=== PATIENT | male | born 1940 | race African-American/Black ===

== ENCOUNTER 2017-07-10 09:42 | Emergency (ER) | payer MEDICARE ==
--- NOTE | 2017-07-10 11:19 | RAD ---
UPRIGHT PORTABLE CHEST 1 VIEW: HISTORY: A 77-year-old female with mid sternal chest pain. History of cardiac problems. COMPARISON: 02/06/17. FINDINGS: Monitor leads overlie the chest. Loop recorder overlies the left chest. Heart size is normal. The lungs are clear. IMPRESSION: No acute intrathoracic disease. POS: [facility]
== END 2017-07-10 10:24 | disposition home or self-care (01) ==
LOC: ERS 09:42
DX: L03.313 Cellulitis of chest wall (principal); R07.89 Other chest pain; I10 Essential (primary) hypertension; I25.10 Atherosclerotic heart disease of native coronary artery without angina pectoris; F17.210 Nicotine dependence, cigarettes, uncomplicated; Z87.442 Personal history of urinary calculi
CPT/HCPCS: 71010; 93005

== ENCOUNTER 2018-04-21 06:06 | Inpatient (IN) | payer MEDICARE ==
[2018-04-21 07:06] LABS: #Basophils 0.1 thou/uL (0.0-0.2); #Eosinphils 0.1 thou/uL (0.0-0.7); #Lymphocytes 1.9 thou/uL (1.20-3.40); #Monocytes 0.6 thou/uL (0.11-0.59); #Neutrophils 6.7 thou/uL (1.40-6.50); %Basophils 0.6 % (0.0-1.0); %Eosinophils 0.9 % (0.0-10.0); %Lymphocytes 20.6 % (21.0-51.0); %Monocytes 6.8 % (0.0-10.0); %Neutrophils 71.1 % (42.0-75.0); Hemoglobin 5.8 g/dL (14.0-18.0); Mean Corpuscular HGB CONC 34.4 g/dL (32.0-36.0); Mean Corpuscular Hemoglobin 29.4 pg (27.0-31.0); Mean Corpuscular Volume 85.5 fL (78.0-98.0); Mean Platelet Volume 6.8 fL (7.4-10.4); Platelet Count 304 thou/uL (130-400); Red Blood Cell (RBC) Count 1.96 mill/uL (4.70-6.10); White Blood Cell (WBC) Count 9.4 thou/uL (4.8-10.8)
[2018-04-21 07:22] LABS: ALT (SGPT) 13 U/L (8-55); AST (SGOT) 23 U/L (5-34); Albumin 3.5 g/dL (3.4-4.8); Alkaline Phosphatase 66 U/L (40-150); Anion Gap 17 mmol/L (10-20); BUN (Urea Nitrogen) 10 mg/dL (8.4-25.7); Bilirubin, Total Less than 0.2 mg/dL (0.2-1.2); Calc. Creatinine Clearance 0 mL/min (70-130); Calcium 8.4 mg/dL (7.8-10.44); Carbon Dioxide 16 mmol/L (23-31); Chloride 110 mmol/L (98-107); Estimated GFR-MDRD 87; Globulin 2.5 g/dL (2.4-3.5); Glucose 111 mg/dL (83-110); Potassium 3.5 mmol/L (3.5-5.1); Sodium 139 mmol/L (136-145)
[2018-04-21 07:42] LABS: CKMB 5.3 ng/mL (0-6.6); Troponin I Less than 0.010 ng/mL (< 0.028)
--- NOTE | 2018-04-21 09:20 | RAD ---
PORTABLE CHEST 1 VIEW: Date: 04/21/18 Time: 0803 hours HISTORY: Nausea and vomiting. FINDINGS: Comparison made with exam of 07/10/17. The heart size is normal. The aorta is tortuous. Loop recorder in the left chest is again seen. The l ungs are well expanded without focal areas of consolidation, pneumothorax, or pleural effusions. IMPRESSION: No acute process. POS: [facility]
[2018-04-21] MEDS ORDERED: Piperacillin/Tazobactam 4.5 GM VIAL ONE (09:40)
[2018-04-21 10:04] LABS: Bilirubin Negative (Negative); Blood, Urine Negative (Negative); Clarity CLEAR (Clear); Glucose, Urine (Dipstick) Negative (Negative); Leukocyte Negative (Negative); Nitrite Negative (Negative); Protein, Urine (Dipstick) Negative (Neg-Trace); Specific Gravity, Urine 1.007 (1.002-1.036); Urobilinogen 0.2 mg/dL (0.2-1.0); pH, Urine 6.5 (5.0-9.0)
[2018-04-21] MEDS ORDERED: Ondansetron HCl/PF 4 MG/2 ML Vial IVP PRN (11:22)
[2018-04-21] MEDS ORDERED: Zolpidem Tartrate 5 MG TAB PO PRN (11:22)
[2018-04-21] MEDS ORDERED: Morphine 4 MG/ML VIAL ONE ×2 (11:33→15:14)
--- NOTE | 2018-04-21 11:34 | HP ---
PRIMARY CARE PROVIDER: [facility], Dr. Sravanthi Aleman. Referred to [facility] Service for r ectal bleeding, anemia, and scrotal abscess. HISTORY OF PRESENT ILLNESS: The patient has had pain in his groin for 2 weeks. It got severe this m orning, he was nauseated, felt weak. He has had rectal bleeding x2 weeks, sometimes dark blood, some times bright red blood. He is being treated for hemorrhoidal bleeding. He has had no fever, sweats or chills. PAST MEDICAL HISTORY: Hypertension, cardiac catheterization in 2014 that was negative. He has a [employer] p recorder put in at that time. He has a history of depression. He does not know his medicines. He states he takes a depression medicine and a blood pressure medicine. ALLERGIES: No known drug allergies. PAST SURGICAL HISTORY: L-spine surgery years ago. FAMILY HISTORY: Mother at 89 of a heart attack. Father in his 100s. SOCIAL HISTORY: . next of kin. FULL CODE status. Tobacco; half pack a day. Alcohol; he has a shot of aron occasionally. REVIEW OF SYSTEMS: GENERAL: Dizzy this morning. No fainting. No headache. EYES: No double visio n, blurred vision, flashing lights. EAR, NOSE, AND THROAT: No ear pain or drainage. No nasal bleed ing. No trouble swallowing. CARDIAC: He says he is a little short of breath while walking at times . No cough, no wheezing, no asthma. GASTROINTESTINAL: Negative other than mentioned in present ill ness, no vomiting, no abdominal pain. GENITOURINARY: No hematuria or dysuria. MUSCULOSKELETAL: He states his legs ache at times in his lower legs, does not describe neuropathic pain. Does not descr piedad joint pains or muscle pains, particularly. NEUROLOGIC: No strokes, seizures or focal weakness. PSYCHIATRIC: Depression, stable on current medicines. SKIN: No bruising, bleeding or rash. HEME/ LYMPH: No tender or swollen lymph nodes in axilla, inguinal or cervical area. PHYSICAL EXAMINATION: GENERAL: Alert, oriented, and cooperative gentleman in no distress. VITAL SIGNS: Blood pressure 132/67, pulse 68, respirations 15, temperature 97.7, O2 sat on room air. He describes the pain as 9. HEENT: Examination of his head, eyes, ears, nose, and throat reveal pupils equal, round, and reactiv e to light. Extraocular movements are intact. Sclerae are white. Mucous membranes are decidedly pa le. Tympanic membrane is clear. Nose is clear. Oral mucous membranes are wet. CHEST: Clear to auscultation and percussion. NECK: No jugular venous distention, adenopathy, or thyromegaly. HEART: Regular rate and rhythm. First and second heart sounds clear. No murmurs or gallops. ABDOMEN: Soft, bowel sounds are normal. There is no hepatosplenomegaly, no mass, no rebound. EXTREMITIES: Reveal no cyanosis, clubbing or edema. PULSES: Carotid, radial, femoral, and dorsalis pedis pulses intact. SKIN: Warm and dry without bruises or rash. It is pertinent that in his left chest, there is a subc utaneous 3-4 x 25 mm or so mm metallic device. HEME/LYMPH: No tender or swollen lymph nodes in axilla, inguinal or cervical area. NEUROLOGICAL: Cranial nerves II-XII are intact. Deep tendon reflexes symmetric. Moves all extremit ies. SCROTUM: At the border of the scrotum and the right inguinal area, there is approximately a 1 cm abs cess that is trying to point, it is exquisitely tender, inflamed. LABORATORY DATA AND IMAGING DATA: Lactic acid was elevated at 4.2, CO2 16, chloride 110, sodium 139, potassium 3.5, BUN 10, creatinine 1.01. Liver function test is normal. Urine is clear. CBC showed hemoglobin of 5.8 with normocytic normochromic indices. White cell count 9.4, platelet count 304. Chest x-ray; loop recorder in the left chest. Lung fuentes clear. Heart size normal. No EKG present ed. One will be obtained. PLAN: 1. Abscess, will have general surgeon to see. 2. Severe normocytic normochromic anemia, transfuse. 3. Rectal bleeding. The patient will need a colonoscopy. GI exam. 4. Hypertension. 5. Depression. 6. Lactic acidosis will need to be repeated before discharge.
[2018-04-21 11:36] LABS: Lactic Acid 1.5 mmol/L (0.5-2.2)
[2018-04-21] MEDS ORDERED: CEFAZOLIN 1 GM VIAL ONE (14:11)
[2018-04-21 14:15] LABS: #Basophils 0.1 thou/uL (0.0-0.2); #Eosinphils 0.1 thou/uL (0.0-0.7); #Lymphocytes 2.7 thou/uL (1.20-3.40); #Monocytes 0.8 thou/uL (0.11-0.59); #Neutrophils 7.3 thou/uL (1.40-6.50); %Basophils 0.8 % (0.0-1.0); %Eosinophils 0.6 % (0.0-10.0); %Lymphocytes 24.4 % (21.0-51.0); %Monocytes 7.7 % (0.0-10.0); %Neutrophils 66.5 % (42.0-75.0); Hemoglobin 10.8 g/dL (14.0-18.0); Mean Corpuscular HGB CONC 34.7 g/dL (32.0-36.0); Mean Corpuscular Volume 86.4 fL (78.0-98.0); Mean Platelet Volume 6.9 fL (7.4-10.4); Platelet Count 288 thou/uL (130-400); Red Blood Cell (RBC) Count 3.59 mill/uL (4.70-6.10)
[2018-04-21] MEDS ORDERED: Lidocaine 1% w/Epinephrine 1:100K 20 ML VIAL ONE (15:12)
--- NOTE | 2018-04-21 17:30 | PDOC.EVN ---
Event Note - Event Note Event Note: now in A fib with rvr. cardizem 10mg bolus and infusion at 5mg/hr started. Dr Wiggins consulted
[2018-04-21 17:47] VITALS: BMI 19.3
[2018-04-21] MEDS: CEFAZOLIN 1 GM in Sodium Chloride 0.9% 100 ML IVPB SCH ×2 (17:53→21:03)
[2018-04-21] MEDS: Sodium Chloride 0.9% 1,000 ML IV SCH ×2 (18:05→21:03)
[2018-04-21] MEDS: HYDROcodone/Acetaminophen 7.5/325 mg Tablet PO PRN ×2 (18:13→22:31)
[2018-04-21] MEDS ORDERED: GoLYTELY 4,000 ml Bottle PO SCH (19:45)
--- NOTE | 2018-04-21 19:49 | OP ---
DATE OF PROCEDURE: 04/21/2018 PREOPERATIVE DIAGNOSIS: Right scrotal abscess. POSTOPERATIVE DIAGNOSIS: Right scrotal abscess. PROCEDURES PERFORMED: Incision and drainage of right scrotal abscess. INDICATIONS FOR PROCEDURE: This is a 78-year-old man who presented to the emergency department compl aining of progressively worse right groin pain of 2 weeks' duration. The patient was also complainin g of some nausea and weakness for about the same period of time. He endorses some melena, but no vipin ght red blood per rectum. Clinical examination was consistent with a 2 x 3 cm right scrotal floccule nt tender mass. There is some erythema surrounding this flocculence. There is no active drainage pr esent. The patient had no external hemorrhoids visible on examination. He had received 2 units of p acked red blood cells to treat anemia with a hemoglobin of 5. I discussed with the patient and he co nsented for incision and drainage of the right scrotal abscess. DESCRIPTION OF PROCEDURE: Informed consent obtained from the patient who was placed in the supine po sition. The right groin and scrotum were sterilely prepped and draped in the usual fashion. The ski n over the flocculent mass was anesthetized with 1% lidocaine with epinephrine. A crucifix incision was made over the dome of this flocculence using an 11 scalpel. Large amount of purulent pus was miguel cuated. Cultures were taken. The abscess cavity was irrigated with saline and packed with half-inch iodoform gauze. Dry gauze was placed over this and mesh panties was then applied. The patient tole rated the procedure without any apparent complications. The gauze strip will be removed tomorrow and the patient is to continue with sitz baths twice daily and after each bowel movement.
[2018-04-21 22:30] LABS: Hemoglobin 10.2 g/dL (14.0-18.0); Platelet Count 295 thou/uL (130-400)
--- NOTE | 2018-04-22 01:23 | CON ---
DATE OF CONSULTATION: 04/21/2018 REASON FOR CONSULTATION: Severe anemia and GI bleeding. HISTORY OF PRESENT ILLNESS: Mr. Pendleton is a 78-year-old gentleman, who came to the emergency room to day secondary to groin pain. He was found to have a scrotal abscess. Apparently, this pain started as a bump on his right testicle and became worsening overnight. he was found to be severely an emic. His hemoglobin was 5.8. On 02/06/2017 a year ago had been 14. His MCV was 85, his platelets were 304, and his white count was 9.4. He has been transfused 2 units of blood today and his post-tr ansfusion hemoglobin was 10.8. In talking with the patient, he notes that for several years now, he has had intermittent rectal blee ding. This has been bright red and he attributes to hemorrhoids, because sometimes it would actually hurt. He does not note any melena, but apparently sometimes in the past couple of weeks, he had had some darker blood. He denies any abdominal pain, change in his bowels otherwise. He has had a lot of reflux and gas and he takes ranitidine for that at times. Apparently, this morning, he did feel w eak and was nauseated, but he did not have any emesis, coffee-ground emesis, or overt passing of larg e amounts of blood. PAST MEDICAL HISTORY: Hypertension, cardiac catheterization in 2014. He has had a loop recorder in. He has a history of depression, hypertension. REVIEW OF SYSTEMS: He denies any shortness of breath unless he is smoking a little bit. He denies a ny dysphagia or odynophagia. He states he lost weight in early and that was attributed to some depression, but is doing better now. ALLERGIES: None known. PAST SURGICAL HISTORY: Lumbar spine surgery years ago. He has an event recorder in his chest. FAMILY HISTORY: Mother at 89 of a heart attack. Father in his 100s. SOCIAL HISTORY: He drinks a little alcohol when some of his friends come by. He smokes about half p ack per day. He does not use drugs. His is at the bedside. REVIEW OF SYSTEMS: Everything else is as per HPI. I have reviewed that and agree with Dr. Lanier' re corded review of systems. HOME MEDICATIONS: Nifedipine, aspirin, Tylenol with Codeine at times, and Zantac. MEDICATIONS HERE: Acetaminophen, cefazolin, hydrocodone p.r.n., morphine, p.r.n., Zofran p.r.n., nor mal saline 100 an hour, Ambien. PHYSICAL EXAMINATION: GENERAL: The patient is resting comfortably in bed. He is pretty thin, especially with lot of tempo ral wasting is noticeable on exam. He is alert, bright, and pleasant. VITAL SIGNS: Temperature is 98.2, pulse 69, blood pressure 164/75. HEENT: Oropharynx without lesions. NECK: Supple without any lymphadenopathy. LUNGS: Clear. HEART: Regular rate and rhythm without clicks or murmurs. In chest wall there was something implant ed just below the skin. This is his event recorder. He does not have any leads coming off it. The patient states that was a stent, but he has not had a stent placed. ABDOMEN: Soft and nontender without rebound or guarding. LABORATORY DATA: In addition to the CBC on admission noted on the HPI, INR is 1.2. Liver function t ests are normal. Lactic acid 1.5, it was 4.2 at 6 this morning. His sodium was 139, potassium 3.5, BUN and creatinine were 10 and 1.0. Lipase was less than 4. ASSESSMENT: The patient was admitted for scrotal abscess, which has been addressed. He is on antibi otics now. He was found to be severely anemic. It is unclear if the hemoglobin of 5 is really accur ate, but it must be a little bit low, because his hemoglobin after a unit of blood is still just 10. He does have a history of bleeding. He does have some temporal wasting and history of quite a bit o f reflux and indigestion. RECOMMENDATIONS: 1. Start a PPI. 2. EGD and colonoscopy tomorrow. Risks, benefits, possible complications of the procedure were disc ussed with the patient, as well as alternatives. He understands and he wished to proceed.
[2018-04-22] MEDS: CEFAZOLIN 1 GM in Sodium Chloride 0.9% 100 ML IVPB SCH ×3 (05:53→21:29)
[2018-04-22 07:41] LABS: Hemoglobin 9.6 g/dL (14.0-18.0); Platelet Count 276 thou/uL (130-400)
[2018-04-22] MEDS ORDERED: Prevnar 13-Val Conj/PF 0.5 ML SYRINGE IM ONE (09:00)
[2018-04-22] MEDS: Sodium Chloride 0.9% 1,000 ML IV SCH ×2 (09:01→22:26)
[2018-04-22] MEDS: Pantoprazole 40 MG VIAL IVP SCH (09:14)
[2018-04-22] MEDS ORDERED: ePHEDrine/0.9% NaCl/PF SYRINGE 50 mg/10 ml ONE (13:23)
[2018-04-22] MEDS ORDERED: PHENYLEPHRINE-NS 100 MCG/ML 10 ML SYRINGE ONE ×2 (13:24→14:44)
[2018-04-22] MEDS ORDERED: PROPOFOL 200 MG/20 ML VIAL ONE (14:44)
[2018-04-22] MEDS ORDERED: Cepastat Lozenges 1 LOZ PO PRN (18:55)
[2018-04-22] MEDS: Acetaminophen 325 MG TAB PO PRN (21:32)
--- NOTE | 2018-04-23 01:07 | OP ---
DATE OF PROCEDURE: 04/22/2018 PREPROCEDURE DIAGNOSIS: Severe anemia. POSTPROCEDURE DIAGNOSES: 1. Gastric ulcer antrum white based, no active bleeding, biopsied. 2. Scalloping duodenal fold biopsy, rule out . 3. Colonoscopy, no overt lesions were seen. The prep was poor, polyps may have been missed. ANESTHESIA: TIVA. PROCEDURE IN DETAIL: After the patient was informed of the risks, benefits, possible complications o f endoscopy including perforation, bleeding, reaction to medication and aspiration, informed consent was obtained. The patient was brought to the endoscopy suite where he was sedated in a gradual fashi on. Once he was comfortable, a bite block was placed in the incisural orifice. The endoscope was ad vanced through the esophagus, stomach and second and third portion of duodenum and slowly removed. T he esophagus was normal except for hiatal hernia, which was small. The stomach was notable for gastr ic antral ulcer, which was biopsied. There was no active bleeding noted. Photodocumentation was obt ained. The duodenal bulb was normal in the second and third portion of the duodenum and scalloping o f the folds and biopsies taken to rule out celiac disease. The scope was brought back to the stomach , and retroflexed views were performed, which were normal. The patient was turned in the room and rectal exam was performed. There is sclerosis anal canal, thr ough the colon to the cecum. The prep was poor. The colon was tortuous. We irrigated about 2 liter s of saline to clear the prep as best we could. There were no bleeding sites identified. Small poly ps may have been missed secondary to the poor prep. The cecum was visualized and photographed. ____ _ rectum was normal. The scope was removed. The patient tolerated the procedure without complicatio ns. RECOMMENDATIONS: 1. Await histopathology. 2. Avoid NSAIDs. 3. Avoid alcohol. 4. PPI therapy. We will follow from a distance.
[2018-04-23] MEDS: Sodium Chloride 0.9% 1,000 ML IV SCH ×2 (02:10→11:27)
[2018-04-23] MEDS: CEFAZOLIN 1 GM in Sodium Chloride 0.9% 100 ML IVPB SCH ×2 (06:52→11:28)
[2018-04-23] MEDS: Acetaminophen 325 MG TAB PO PRN (07:52)
[2018-04-23] MEDS: Pantoprazole 40 MG VIAL IVP SCH (11:27)
[2018-04-23] MEDS ORDERED: traMADol HCl 50 MG TAB PO PRN (11:54)
--- NOTE | 2018-04-23 13:09 | PDOC.PN ---
- Subjective Encounter Start Date: 04/23/18 Encounter Start Time: 11:00 Subjective: c/o pain in his scrotal abscess incision site -: no jose luis bleeding per rectum -: is ambulating in room - Objective Resuscitation Status: Resuscitation Status FULL:Full Resuscitation MAR Reviewed: Yes Vital Signs & Weight: Vital Signs (12 hours) Temp Pulse Resp BP Pulse Ox 04/23/18 12:05 98.6 F 71 16 114/65 95 04/23/18 07:58 98.2 F 69 14 04/23/18 07:30 98.2 F 69 14 100/62 92 L 04/23/18 03:45 98.5 F 68 16 95/56 L 95 Weight Weight 135 lb I&O: 04/22/18 04/23/18 04/24/18 06:59 06:59 06:59 Intake Total 2125 Output Total 500 Balance 1625 Result Diagrams: 04/22/18 06:53 04/21/18 06:53 Phys Exam - Physical Examination HEENT: PERRLA, moist MMs Neck: no JVD, supple Respiratory: no wheezing, no rales Cardiovascular: RRR, no significant murmur Gastrointestinal: soft, non-tender, positive bowel sounds scrotal abscess I&D site is clean Musculoskeletal: no edema, pulses present Neurological: non-focal, moves all 4 limbs Psychiatric: normal affect, A&O x 3 Dx/Plan (1) Scrotal abscess Code(s): N49.2 - INFLAMMATORY DISORDERS OF SCROTUM Status: Acute Comment: s/ p I&D (2) GI bleed Code(s): K92.2 - GASTROINTESTINAL HEMORRHAGE, UNSPECIFIED Status: Resolved Qualifiers: GI bleed type/associated pathology: gastric ulcer Qualified Code(s): K25.4 - Chronic or unspecified gastric ulcer with hemorrhage (3) PUD (peptic ulcer disease) Code(s): K27.9 - PEPTIC ULC, SITE UNSP, UNSP AC OR CHR, W/O HEMOR OR PERF Status: Acute (4) Acute blood loss anemia Code(s): D62 - ACUTE POSTHEMORRHAGIC ANEMIA Status: Acute (5) Tobacco abuse Code(s): Z72.0 - TOBACCO USE Status: Chronic - Plan h/h is stable now -: augmentin, ultram, norco prn -: dc plan per gen surg advice -: protonix bid -: to amb as tolerated * . Review of Systems - Medications/Allergies Allergies/Adverse Reactions: Allergies Allergy/AdvReac Type Severity Reaction Status Date / Time No Known Allergies Allergy Verified 04/23/15 17:37 Medications: Current Medications Acetaminophen (Tylenol) 650 mg PO Q4H PRN PRN Reason: Headache/Feve Last Admin: 04/23/18 07:52 Dose: 650 mg Amoxicillin/Clavulanate Potassium (Augmentin) 875 mg PO Q12HR BENNIE Cephalexin (Keflex) 500 mg PO TID [facility] Stop: 04/28/18 15:01 Ondansetron HCl (Zofran) 4 mg IVP Q6H PRN PRN Reason: Nausea/Vomiting Last Admin: 04/22/18 01:58 Dose: 4 mg Pantoprazole Sodium (Protonix) 40 mg PO DAILY [facility] Sodium Chloride (Flush - Normal Saline) 10 ml IVF Q12HR [facility] Last Admin: 04/23/18 11:27 Dose: Not Given Sodium Chloride (Flush - Normal Saline) 10 ml IVF PRN PRN PRN Reason: Saline Flush Throat Lozenges (Cepastat Lozenges) 1 genaro PO Q4H PRN PRN Reason: Cough Tramadol HCl (Ultram) 50 mg PO Q6H PRN PRN Reason: Pain Zolpidem Tartrate (Ambien) 5 mg PO HSPRN PRN PRN Reason: Insomnia
[2018-04-23] MEDS ORDERED: Cephalexin 250 MG CAP PO SCH (15:00)
[2018-04-23 15:45] VITALS: BP 122/73; TEMP 98.3
--- NOTE | 2018-04-23 16:39 | PRG ---
DATE OF SERVICE: 04/23/2018 SUBJECTIVE: Mr. Pendleton states he wants to go home. He has no belly pain. His arm hurts a little bi t for he had his IVs in. PHYSICAL EXAMINATION: VITAL SIGNS: Temperature is 98, pulse 71, respirations 16, blood pressure 114/65. LUNGS: Clear. ABDOMEN: Soft, nontender. EXTREMITIES: Examining his right arm, there was no evidence of induration or color change, or exudat e, or phlebitis, or fluctuance. LABORATORY STUDIES: Hemoglobin was 9.6 yesterday, it was not checked today and in fact he has had no labs checked today. ASSESSMENT: 1. Severe anemia, on admission 5.8, with 2 units of blood it has come up to 9.6. EGD did show some small ulcers in the gastric antrum, nonbleeding; also had some scalloped folds in the duodenum, which were biopsied. 2. With regard to his anemia, I expect his hemoglobin probably to come up more to 8 with the 2 units he received. He shows no signs of acute bleeding probably with gastrointestinal blood loss anemia. 3. Scrotal abscess, per General Surgery. 4. His right arm was swollen. He did have infiltration with propofol in the arm. There was no evid ence of cellulitis or necrosis. The arm is nontender, nonfluctuant. RECOMMENDATIONS: 1. Warm compress for his right arm. 2. Protonix 40 mg once a day. 3. Avoidance of NSAIDs. 4. He will follow up in my office for biopsy results in 1 week, he has my office number and I have h is phone number. 5. With regard to issues of his scrotal abscess, that is up to his primary service. 6. For his anemia, he probably should go home on some iron.
--- NOTE | 2018-04-23 16:57 | EKG ---
Test Reason : Blood Pressure : / mmHG Vent. Rate : 064 BPM Atrial Rate : 064 BPM P-R Int : 176 ms QRS Dur : 084 ms QT Int : 462 ms P-R-T Axes : 068 028 056 degrees QTc Int : 476 ms Normal sinus rhythm Septal infarct , age undetermined Abnormal ECG Confirmed by RANCHO ARMSTRONG DO ([id number]), clinical editor SHERYL KOCH ([id number]) on 04/23/2018 4:56:27 PM Referred By: Confirmed By:RANCHO ARMSTRONG DO
[2018-04-23] MEDS ORDERED: Ferrous Sulfate 325 MG TAB PO SCH (17:00)
[2018-04-23] MEDS ORDERED: Amoxicillin/Potassium Clav 875 MG TAB PO SCH (21:00)
--- NOTE | 2018-04-23 23:42 | DIS ---
DATE OF ADMISSION: 04/21/2018 DATE OF DISCHARGE: 04/23/2018 DISCHARGE DISPOSITION: To home. PRIMARY DISCHARGE DIAGNOSES: Scrotal abscess, status post incision and drainage; acute blood loss an emia with gastrointestinal bleed, status post esophagogastroduodenoscopy and colonoscopy; peptic ulce r disease; tobacco abuse. PROCEDURES DONE DURING HOSPITALIZATION: Patient had incision and drainage done of a scrotal abscess at bedside on 04/21/2018 on the right side of his scrotum by Dr. Kennedy. Upper and lower endoscopies were done by Dr. Valdes on 04/22/2018, which showed no active bleeding, but patient was found to have had gastric ulcer in the antrum, with scalloping duodenal fold, which were biopsied. Colonoscopy, n o overt lesions were seen, but was a poor prep. Blood cultures x2, no growth. Initial H and H was 5 .8 and 16.8. Discharge H and H 9.6 and 28. Discharge BUN and creatinine is 10 and 1.0. DISCHARGE MEDICATIONS: Augmentin 875 mg p.o. twice daily for another 6 days, Protonix 40 mg p.o. nick ly, ferrous sulfate 325 mg p.o. twice daily, Procardia-XL 30 mg p.o. daily, Ultram p.r.n. for pain. ALLERGIES: No known drug allergies. INPATIENT CONSULTS: Dr. Valdes for Gastroenterology, Dr. Kennedy for General Surgery. DISCHARGE PLAN: Patient to follow up with Dr. Kennedy in [address] Valdes likely in 8-12 weeks an d primary care physician in 1 week. BRIEF COURSE DURING HOSPITALIZATION: Patient initially was brought to emergency room for complaints of pain in his groin for nearly 2 weeks and rectal bleeding for nearly 2 weeks as well. He had a hem oglobin of 5.8 grams on admission. He was given 2 units of packed cell transfusion and had consultat ions with Dr. Valdes for Gastroenterology, and Dr. Kennedy for right scrotal abscess. He has had incis ion and drainage done of the abscess done at bedside. He was on IV antibiotics and has been transiti oned over to Augmentin. Upper and lower endoscopies were done by Dr. Valdes, which showed gastric an tral ulcer with no active bleeding. He needs to continue ferrous sulfate and Protonix as prescribed with refills. He has been counseled against using tobacco. The patient also has been advised not to use NSAIDs. He is ambulating and eating well prior to discharge. Please see a [id number] ofelian michellion on [facility] for the day of discharge.
== END 2018-04-23 17:27 | disposition home or self-care (01) | DRG 727 ==
LOC: ERS 06:06 → SJJU 16:55
PROVIDERS: ADMIT Internal Medicine; ATTEND Internal Medicine
PROC: 0V95XZZ Drainage of Scrotum, External Approach (ICD-10-PCS; principal; 2018-04-21)
PROC: 30233N1 Transfusion of Nonautologous Red Blood Cells into Peripheral Vein, Percutaneous Approach (ICD-10-PCS; 2018-04-21)
PROC: 0DJD8ZZ Inspection of Lower Intestinal Tract, Via Natural or Artificial Opening Endoscopic (ICD-10-PCS; 2018-04-22)
PROC: 0DB68ZX Excision of Stomach, Via Natural or Artificial Opening Endoscopic, Diagnostic (ICD-10-PCS; 2018-04-22)
DX: N49.2 Inflammatory disorders of scrotum (principal); K25.4 Chronic or unspecified gastric ulcer with hemorrhage; E87.2 Acidosis; D62 Acute posthemorrhagic anemia; I48.91 Unspecified atrial fibrillation; K44.9 Diaphragmatic hernia without obstruction or gangrene; K63.89 Other specified diseases of intestine; K62.89 Other specified diseases of anus and rectum; R22.31 Localized swelling, mass and lump, right upper limb; I10 Essential (primary) hypertension; K21.9 Gastro-esophageal reflux disease without esophagitis; F32.9 Major depressive disorder, single episode, unspecified; F17.210 Nicotine dependence, cigarettes, uncomplicated
CPT/HCPCS: 36415; 36430; 71045; 80053; 81003; 82553; 83605; 84484; 85014; 85018; 85025; 85049; 86850; 86900; 86901; 87040; 87070; 87205; 88305; 88312; 93005; 96361; 96365; 96367; 96375; A4216; C9113; J0690; J2001; J2270; J2405; J2543; J2704; J3370; J7050; P9016

== ENCOUNTER 2018-04-29 16:03 | Emergency (ER) | payer MEDICARE ==
[2018-04-29 17:26] LABS: #Basophils 0.1 thou/uL (0.0-0.2); #Eosinphils 0.1 thou/uL (0.0-0.7); #Lymphocytes 1.7 thou/uL (1.20-3.40); #Monocytes 1.3 thou/uL (0.11-0.59); #Neutrophils 10.2 thou/uL (1.40-6.50); %Basophils 0.5 % (0.0-1.0); %Eosinophils 0.8 % (0.0-10.0); %Lymphocytes 12.7 % (21.0-51.0); %Monocytes 9.9 % (0.0-10.0); %Neutrophils 76.2 % (42.0-75.0); Hemoglobin 9.7 g/dL (14.0-18.0); Mean Corpuscular HGB CONC 33.4 g/dL (32.0-36.0); Mean Corpuscular Hemoglobin 29.6 pg (27.0-31.0); Mean Corpuscular Volume 88.5 fL (78.0-98.0); Mean Platelet Volume 7.2 fL (7.4-10.4); Platelet Count 356 thou/uL (130-400); RBC Distribution Width 16.2 % (11.5-14.5); Red Blood Cell (RBC) Count 3.29 mill/uL (4.70-6.10); White Blood Cell (WBC) Count 13.5 thou/uL (4.8-10.8)
[2018-04-29 17:46] LABS: ALT (SGPT) 16 U/L (8-55); AST (SGOT) 20 U/L (5-34); Albumin 3.8 g/dL (3.4-4.8); Alkaline Phosphatase 73 U/L (40-150); Anion Gap 15 mmol/L (10-20); BUN (Urea Nitrogen) 9 mg/dL (8.4-25.7); Bilirubin, Total 0.2 mg/dL (0.2-1.2); Calc. Creatinine Clearance 0 mL/min (70-130); Calcium 9.2 mg/dL (7.8-10.44); Carbon Dioxide 21 mmol/L (23-31); Chloride 106 mmol/L (98-107); Estimated GFR-MDRD 79; Globulin 3.2 g/dL (2.4-3.5); Glucose 118 mg/dL (83-110); Potassium 3.7 mmol/L (3.5-5.1); Sodium 138 mmol/L (136-145)
[2018-04-29] MEDS ORDERED: HYDROcodone/Acetaminophen 5/325 mg Tablet ONE (18:06)
--- NOTE | 2018-04-29 18:50 | RAD ---
RADIOGRAPH CERVICAL SPINE 3 VIEWS: 04/29/18 at 6:11 p.m. HISTORY: 78-year-old male with nontraumatic cervicalgia. FINDINGS: At C3-4, C4-5, C5-6 and C6-7, there is moderate disc space narrowing, and end plate osteophytosis, mi ld and moderate. Vertebral body heights are maintained. No bony central spinal canal stenosis. No pre vertebral soft tissue swelling. No high grade facet DJD. IMPRESSION: Cervical spondylosis, with multilevel moderate degenerative disc disease. JN [] POS: [facility]
== END 2018-04-29 19:02 | disposition home or self-care (01) ==
LOC: ERS 16:03
DX: M50.30 Other cervical disc degeneration, unspecified cervical region (principal); I25.10 Atherosclerotic heart disease of native coronary artery without angina pectoris; I10 Essential (primary) hypertension; F17.210 Nicotine dependence, cigarettes, uncomplicated
CPT/HCPCS: 36415; 72040; 80053; 85025

== ENCOUNTER 2018-05-05 06:18 | Observation (INO) | payer MEDICARE ==
[2018-05-05 06:47] LABS: #Basophils 0.1 thou/uL (0.0-0.2); #Eosinphils 0.1 thou/uL (0.0-0.7); #Lymphocytes 1.8 thou/uL (1.20-3.40); #Monocytes 0.6 thou/uL (0.11-0.59); %Basophils 0.7 % (0.0-1.0); %Eosinophils 0.9 % (0.0-10.0); %Lymphocytes 21.3 % (21.0-51.0); %Monocytes 6.7 % (0.0-10.0); %Neutrophils 70.5 % (42.0-75.0); Hemoglobin 9.8 g/dL (14.0-18.0); Mean Corpuscular HGB CONC 33.8 g/dL (32.0-36.0); Mean Corpuscular Hemoglobin 29.7 pg (27.0-31.0); Mean Corpuscular Volume 87.8 fL (78.0-98.0); Mean Platelet Volume 6.7 fL (7.4-10.4); Platelet Count 601 thou/uL (130-400); RBC Distribution Width 15.6 % (11.5-14.5); Red Blood Cell (RBC) Count 3.31 mill/uL (4.70-6.10); White Blood Cell (WBC) Count 8.5 thou/uL (4.8-10.8)
[2018-05-05 07:09] LABS: ALT (SGPT) 10 U/L (8-55); AST (SGOT) 14 U/L (5-34); Albumin 3.7 g/dL (3.4-4.8); Alkaline Phosphatase 79 U/L (40-150); Anion Gap 12 mmol/L (10-20); BUN (Urea Nitrogen) 10 mg/dL (8.4-25.7); Bilirubin, Total 0.2 mg/dL (0.2-1.2); Calc. Creatinine Clearance 0 mL/min (70-130); Carbon Dioxide 23 mmol/L (23-31); Chloride 106 mmol/L (98-107); Estimated GFR-MDRD 79; Glucose 136 mg/dL (83-110); Lipase Less than 4 U/L (8-78); Protein, Total 6.7 g/dL (5.8-8.1); Sodium 137 mmol/L (136-145)
[2018-05-05] MEDS ORDERED: Cyclobenzaprine 10 MG TAB ONE (09:21)
[2018-05-05] MEDS ORDERED: Pantoprazole 40 MG VIAL ONE (09:21)
[2018-05-05 10:08] LABS: Bilirubin Negative (Negative); Blood, Urine Negative (Negative); Clarity CLEAR (Clear); Glucose, Urine (Dipstick) Negative (Negative); Leukocyte Trace (Negative); Nitrite Negative (Negative); Protein, Urine (Dipstick) Negative (Neg-Trace); Specific Gravity, Urine 1.015 (1.002-1.036); Urobilinogen 0.2 mg/dL (0.2-1.0)
[2018-05-05 10:11] LABS: Bacteria/HPF None Seen HPF (None Seen); Hyaline Casts/LPF 0-3 HYALINE CAST LPF (0-3 Hyaline); Squamous Epithelial 0-3 HPF (0-3)
[2018-05-05 13:30] VITALS: BMI 15.9
[2018-05-05] MEDS ORDERED: traMADol HCl 50 MG TAB PO PRN ×2 (14:40→15:08)
[2018-05-05] MEDS ORDERED: Ondansetron ODT 4 MG TAB PO PRN (14:40)
[2018-05-05] MEDS ORDERED: Acetaminophen 500 MG TAB PO PRN (14:40)
[2018-05-05] MEDS ORDERED: Ondansetron HCl/PF 4 MG/2 ML Vial IVP PRN (14:40)
[2018-05-05] MEDS: Sodium Chloride 0.9% 1,000 ML IV SCH ×2 (15:52→23:30)
[2018-05-05] MEDS: Ferrous Sulfate 325 MG TAB PO SCH (16:39)
[2018-05-05] MEDS ORDERED: GoLYTELY 4,000 ml Bottle PO SCH (18:00)
--- NOTE | 2018-05-05 20:40 | HP ---
DATE OF ADMISSION: 05/05/2018 PRIMARY CARE PHYSICIAN: Sravanthi Aleman M.D. CHIEF COMPLAINT: Blood per rectum. HISTORY OF PRESENT ILLNESS: This is a 78-year-old male who presents to [facility] Emergency Department complaining of bright red blood per the rectum with associated abdominal cr amping. The patient states he noted blood in his rectal area in the carpet cleaner hours on 8 after having a bowel movement. The patient's history is significant for recent GI bleed, undergoin g endoscopy showing a gastric antral ulcer without active bleeding. The patient was recommended to a void NSAIDs and alcohol and continue on a proton pump inhibitor therapy. The patient states he has b een compliant with this recommendation and denies taking any blood thinners. The patient states over all decreased appetite; however, denied any nausea or emesis. The patient denied any hematemesis. T he patient, as stated previously, was recently admitted 04/21/2018 through 04/23/2018 for GI bleed, r eceiving 2 units of packed red blood cells. In the emergency room, the patient was noted with hemogl obin of 9.8, previously noted 9.78 on . The patient received intravenous normal saline as wel l as IV Protonix and Flexeril. The patient was referred to the observation unit for evaluation. PAST MEDICAL HISTORY: 1. Gastric antral ulcer. 2. Gastrointestinal bleed secondary to #1 status post 2 units of packed red blood cells. 3. Scrotal abscess status post incision and drainage, 04/21/2018. 4. Alcohol abuse. 5. Hypertension. 6. Depression. 7. Anorexia. 8. History of hemorrhoids with bleeding. PAST SURGICAL HISTORY: 1. Status post EGD and colonoscopy. 2. Status post cardiac catheterization. 3. Status post lumbar spine surgery. CURRENT MEDICATIONS: 1. Amlodipine 10 mg 1 tab p.o. daily. 2. Buspirone 10 mg p.o. b.i.d. 3. Lexapro 10 mg p.o. daily. 4. Ultram 50 mg 1-2 tabs p.o. q.6 hours p.r.n. 5. Ferrous sulfate 325 mg p.o. b.i.d. 6. Protonix 40 mg p.o. daily. ALLERGIES: No known drug allergies. FAMILY HISTORY: Mother at 89 years of age after myocardial infarction. Father in his 100s . SOCIAL HISTORY: The patient resides in the [place], [place] area. Smokes up to half a pack of cigarette s daily. Occasional alcohol use. No illicit drug use. REVIEW OF SYSTEMS: The following complete review of systems was negative, unless otherwise mentioned in the HPI or below: Constitutional: Weight loss or gain, ability to conduct usual activities. Sk in: Rash, itching. Eyes: Double vision, pain. ENT/Mouth: Nose bleeding, neck stiffness, pain, te nderness. Cardiovascular: Palpitations, dyspnea on exertion, orthopnea. Respiratory: Shortness of breath, wheezing, cough, hemoptysis, fever or night sweats. Gastrointestinal: Poor appetite, abdom inal pain, heartburn, nausea, vomiting, constipation, or diarrhea. Genitourinary: Urgency, frequenc y, dysuria, nocturia. Musculoskeletal: Pain, swelling. Neurologic/Psychiatric: Anxiety, depressio n. Allergy/Immunologic: Skin rash, bleeding tendency. PHYSICAL EXAMINATION: VITAL SIGNS: Currently, blood pressure 168/74, pulse 65, respiratory rate 18, temperature 97.9 degre es Fahrenheit, O2 saturation 99% on room air. GENERAL APPEARANCE: This is a disheveled appearing 78-year-old male with bitemporal wasting. Alert and responsive. HEENT: Pupils are equal, round, and reactive to light and accommodation. Extraocular muscles are in tact. No scleral icterus, no conjunctival injection. Nares patent. OP is clear. Teeth in poor rep air. NECK: Supple, no cervical adenopathy, no thyromegaly, no carotid bruits, no JVD appreciated. Cervic al spine with full active and passive range of motion. CHEST: Lungs are clear to auscultation bilaterally. CARDIOVASCULAR: S1, S2, without noted murmur, rub or gallop. ABDOMEN: Scaphoid without tenderness to palpation. No palpable mass. No rebound or guarding noted. EXTREMITIES: Generalized atrophy. No clubbing, cyanosis or asymmetric edema of the lower extremitie s. Pulses palpable distally at the dorsalis pedis, posterior tibial, and popliteal arteries bilatera lly. Capillary refill less than 2 seconds. NEUROLOGIC: Cranial nerves II-XII are grossly intact. No focal or lateralizing signs appreciated. The patient not observed ambulatory during this exam. PERTINENT LABORATORY AND X-RAY FINDINGS: Complete metabolic profile within normal limits. Lipase le ss than 4. CBC showed a white blood cell count of 8.5, hemoglobin 9.8, hematocrit 29.1, platelet cou nt 601 with 71% neutrophils. Stool Hemoccult positive x1, 05/05/2018. EKG dated 05/05/2018 by my in terpretation shows sinus mechanism with heart rates in the 50s to 60s. Normal R-wave progression not ed in the precordial leads. Normal axis. No acute ST-T wave changes appreciated. ASSESSMENT AND PLAN: 1. Hematochezia. Suspect hemorrhoidal source given bright red blood and recent endoscopy on 018. Colonoscopy was noted with poor prep. We will continue serial H&H monitoring. Continue Proton ix 40 mg p.o. daily. Repeat CBC in the a.m. We will consult GI service for any further recommendati ons. 2. Acute on chronic normocytic anemia. Hemoglobin currently stable when compared to previous values on 04/29/2018. We will continue serial monitoring as outlined in #1. Repeat CBC in the a.m. 3. Hypertension. Resume amlodipine 10 mg daily. Serial blood pressure monitoring. 4. Gastric antral ulcer. Noted on previous EGD, 04/22/2018. Continue Protonix 40 mg daily. 5. Anorexia with deconditioning. We will continue supportive management. Consider PT evaluation. Ensure Enlive b.i.d. 6. Prophylaxis. Sequential compression devices while in bed. Protonix 40 mg p.o. daily. 7. Code status is FULL. Surrogate medical decision maker is Jessica Moore.
[2018-05-05] MEDS: busPIRone HCl 10 MG TAB PO SCH (21:17)
--- NOTE | 2018-05-06 00:09 | CON ---
DATE OF CONSULTATION: 05/05/2018 REASON FOR CONSULTATION: Hematochezia. CONSULTING PHYSICIAN: Dr. Alexandria Liang. HISTORY OF PRESENT ILLNESS: The patient is a 78-year-old gentleman with a past medical history of de pression, hypertension with cardiac catheterization in 2015 as well as an implanted loop/event record er, presented with complaints of hematochezia. Upon chart review, the patient was recently admitted to the hospital on 04/21/2018 with complaints of hematochezia as well as a significant decrease in hi s H&H. During that hospitalization, he underwent both upper and lower endoscopy with the upper endos copy showing the presence of a small gastric antral ulcer without any stigmata of active/recent bleed ing; however, during the colonoscopy, it still had a significant amount of retained stool limiting vi sualization of the colonic mucosa. With more conservative measures with PPI administration, the lily ent did not exhibit any further episodes of hematochezia and was ultimately discharged to home; [facility], he states that he was in his usual state of health until earlier today when he had the recurrence of hematochezia characterized as bright red blood per rectum that was present on both the toilet pap er and within the toilet, characterized as "quite a bit of blood." The blood was seen coating the st ool rather than mixed in with the stool and occurred twice earlier today, but has not reoccurred sinc e. This was also associated with mild increased cramping abdominal pain located in the periumbilical region that lasted for approximately 20-30 minutes after having the first bloody bowel movement, but has since resolved with no further episodes of the abdominal pain. Of note, during his first bowel movement earlier today, he did characterize it is harder to pass stool that did require increased str aining in order to facilitate defecation and he does have a history of hemorrhoids, although these we re not commented on during his most recent colonoscopy at the end of March. Currently, he denies an y nausea, vomiting, fevers, chills, abdominal pain, hematemesis, melena, weight loss, dysphagia, or o dynophagia. REVIEW OF SYSTEMS: A 10-category review of systems was obtained with all responses negative except f or the pertinent positives as listed in the HPI. PAST MEDICAL HISTORY: As per HPI. PAST SURGICAL HISTORY: Lumbar spine surgery, event-recorder implantation. FAMILY HISTORY: Denies any GI malignancies. SOCIAL HISTORY: Smokes approximately one-half pack per day along with occasional consumption of alco hol in social situations. He does not use any illicit use. OUTPATIENT MEDICATIONS: Reviewed. ALLERGIES: No known drug allergies. PHYSICAL EXAMINATION: VITAL SIGNS: Temperature 98.7, pulse 64, blood pressure 149/79, respiratory rate 14, satting 99% on room air. GENERAL: The patient was lying in bed in no acute distress. Alert and oriented x4. NECK: Supple. No JVD noted. CARDIOVASCULAR: Regular rate and rhythm with no discernible murmurs, gallops, or rubs. LUNGS: Clear to auscultation bilaterally with no discernible wheezes or rales. ABDOMEN: Normoactive bowel sounds, soft, nontender, nondistended. EXTREMITIES: No cyanosis, clubbing, or edema. LABORATORY DATA: CBC with a white blood cell count of 8.5, hemoglobin 9.8, hematocrit 29.1, platelet s 601,000. Chemistry with a sodium of 137, potassium 4, chloride 106, CO2 of 23, BUN 10, creatinine 1.1, glucose 136, AST 14, ALT 10, alkaline phosphatase 79, total bilirubin 0.2, albumin 3.7, lipase l ess than 4. IMAGING DATA: EGD and colonoscopy performed on 04/22/2018, showed a small gastric antral ulceration without active bleeding noted. This was biopsied for evaluation of causative mechanism. There was a lso some scalloping of the duodenal folds with biopsies taken to rule out celiac disease. The colono scopy was performed at that time, but adequate visualization of the colonic mucosa may not have been adequately obtained due to significant amount of retained solid and liquid stool. ASSESSMENT AND PLAN: The patient is a 78-year-old -[place] male with past medical history of depression, hypertension, status post cardiac catheterization, and gastric ulceration, presenting wi th complaints of hematochezia. Hematochezia: The patient is presenting with a recent history of bright red blood per rectum, charac terized as blood present both on the toilet paper and within the toilet that was seen shortly after p assing a harder to pass stool. He was recently admitted to the hospital in 03/2018 for exact of thes e symptoms and underwent upper and lower endoscopies at that time. The upper endoscopy showed the pr esence of a small gastric ulceration, but did not exhibit any high risk stigmata of active or recent bleeding. However, the colonoscopy had a significant amount of retained stool, thereby limiting visu alization. Based on the patient's current H&H, which is unchanged when compared to the discharge lab s as well as no hemodynamic instability that might indicate a brisk upper gastrointestinal bleeding. The lower gastrointestinal bleed is more likely at this time, despite the fact that he has gastric u lcerations seen on prior endoscopy. The BUN and creatinine ratio also is not consistent with an uppe r GI bleed at this time. RECOMMENDATIONS: 1. We would continue to trend H&H and transfuse as necessary to maintain an H&H of 7/21. 2. Continue to monitor clinically for signs of active gastrointestinal bleeding. 3. We will proceed with repeat colonoscopy tomorrow hopefully with adequate visualization of the col onic mucosa to establish an etiology of hematochezia. Patient will be placed on a clear liquid diet today and made n.p.o. at midnight in preparation for this procedure. We will continue to follow. Please call with any additional questions.
[2018-05-06 05:14] LABS: Anion Gap 13 mmol/L (10-20); BUN (Urea Nitrogen) 9 mg/dL (8.4-25.7); Calc. Creatinine Clearance 46 mL/min (70-130); Calcium 8.9 mg/dL (7.8-10.44); Carbon Dioxide 23 mmol/L (23-31); Chloride 105 mmol/L (98-107); Estimated GFR-MDRD Greater than 90; Glucose 85 mg/dL (83-110); Potassium 4.1 mmol/L (3.5-5.1); Sodium 137 mmol/L (136-145)
[2018-05-06 05:17] LABS: Band 1 % (5-11); Hemoglobin 9.3 g/dL (14.0-18.0); Hypochromia SLIGHT = 6-15 cells (100X) (0-5/hpf); Lymphocytes 34 % (21-51); MDiff Complete? YES; Mean Corpuscular HGB CONC 34.8 g/dL (32.0-36.0); Mean Corpuscular Hemoglobin 30.3 pg (27.0-31.0); Mean Platelet Volume 6.7 fL (7.4-10.4); Monocytes 9 % (0-10); Neutrophil 56 % (42-75); PLT Morphology Comment Appears Increased; Platelet Count 582 thou/uL (130-400); RBC Distribution Width 15.5 % (11.5-14.5); Red Blood Cell (RBC) Count 3.07 mill/uL (4.70-6.10); White Blood Cell (WBC) Count 6.2 thou/uL (4.8-10.8)
[2018-05-06] MEDS ORDERED: Amlodipine 10 MG TAB PO SCH (09:00)
[2018-05-06] MEDS ORDERED: Escitalopram Oxalate 10 mg Tablet PO SCH (09:00)
[2018-05-06] MEDS: Sodium Chloride 0.9% 1,000 ML IV SCH (09:32)
[2018-05-06] MEDS: busPIRone HCl 10 MG TAB PO SCH (09:33)
[2018-05-06] MEDS: Ferrous Sulfate 325 MG TAB PO SCH (09:33)
[2018-05-06] MEDS ORDERED: Morphine Sulfate 2 MG/ML SYRINGE SLOW IVP PRN (13:43)
[2018-05-06] MEDS ORDERED: Meperidine HCl/PF 25 MG/ML VIAL SLOW IVP PRN (13:43)
[2018-05-06] MEDS ORDERED: HYDROmorphone 2 MG/ML VIAL SLOW IVP PRN (13:43)
[2018-05-06] MEDS ORDERED: Lidocaine 1% PF 5 ML VIAL ONE (14:15)
[2018-05-06] MEDS ORDERED: PROPOFOL 200 MG/20 ML VIAL ONE (14:15)
[2018-05-06 15:51] VITALS: BP 147/77; TEMP 98.7
--- NOTE | 2018-05-06 17:52 | OP ---
DATE OF PROCEDURE: 05/06/2018 PROCEDURE: Colonoscopy (diagnostic). INDICATION FOR PROCEDURE: Hematochezia. DESCRIPTION OF PROCEDURE: After the risks and benefits of the procedure were explained to the patien t including risk of bleeding, infection, perforation, reactions to anesthesia, aspiration and/or pain , informed consent was obtained. The patient was then taken to the endoscopy suite where deep sedati on was administered via propofol and anesthesia support. Once adequate sedation was achieved, the ex ternal examination of the rectum was performed. This was then followed by introduction of the standa rd colonoscope into the rectum and advanced to the terminal ileum without difficulty. The quality of the prep was adequate for visualization of the colonic mucosa, but still had a fair amount of retain ed both solid and liquid stool that was amenable to aggressive irrigation and suctioning. The qualit y of the prep was adequate for the evaluation of possible bleeding source, but not sufficient enough for screening for fine mucosal lesions less than 5 mm in size. The patient tolerated the procedure w ell with no immediate perioperative complications. DIGITAL RECTAL EXAM: A large perianal skin tag was seen adjacent to the anal orifice with small exte rnal hemorrhoids noted as well. COLON FINDINGS: Normal appearing mucosa was seen in the terminal ileum as well as at the ileocecal v alve and appendiceal orifice. Despite significant amount of retained solid and liquid stool with agg ressive irrigation and suctioning, adequate views were able to be achieved with the mucosa seen. Nor mal appearing mucosa was seen in the ascending, transverse and descending colons. A 4 mm flat sessil e polyp was seen in the sigmoid colon, but not removed during this examination due to increased bleed ing from the site and confounding the original indication for this procedure. Normal mucosa was seen in the rectum. On rectal retroflexion, medium sized internal hemorrhoids were seen with associated increased hyperemia as well as what appeared to be small red crispin markings overlying the internal hem orrhoids. IMPRESSION: 1. 4 mm sigmoid colon polyp, not removed during this colonoscopy. 2. Medium size internal hemorrhoids (most likely reason for patient's recent hematochezia). 3. External hemorrhoids. 4. Large perianal skin tag. RECOMMENDATIONS: 1. We would continue to trend H and H and transfuse as necessary to maintain H and H of 7/21. 2. Continue to monitor clinically for signs of active gastrointestinal bleeding. 3. Could consider hydrocortisone suppositories for treatment of internal hemorrhoids. 4. Patient to follow up in GI clinic as an outpatient. We will sign off at this time. Please call with any additional questions.
--- NOTE | 2018-05-06 22:53 | DIS ---
DATE OF ADMISSION: 05/05/2018 DATE OF DISCHARGE: 05/06/2018 DISCHARGE DIAGNOSES: 1. Hematochezia secondary to hemorrhoids. 2. Chronic normocytic anemia, stable. 3. Gastric antral ulcer, stable. 4. Alcohol use. 5. Hypertension, stable. 6. Anorexia. CONSULTATIONS: Dr. Scott with GI Service. PERTINENT LABORATORY AND X-RAY FINDINGS: Basic metabolic profile within normal limits. LFTs within normal limits. CBC showed a hemoglobin ranging between 9.3-9.8, MCV 87. Stool Hemoccult positive x1 on 05/05/2018. Colonoscopy dated on 05/06/2018 showed medium-sized internal hemorrhoids with hypere yumiko with large perianal skin tag and external hemorrhoids. HOSPITAL COURSE: Patient was placed in observation status after initially presenting with bright red blood per rectum and hematochezia. Patient underwent evaluation by the GI service with recommendati ons for colonoscopy exam undergoing the procedure on 05/06/2018. Findings as noted above with likely bleeding source of internal hemorrhoids. Serial hemoglobin assessment showed stable values without need for further intervention or blood transfusions. Patient continued on Protonix 40 mg daily with recommendations for stool softener and to avoid constipation. Patient was also cautioned regarding t he use of NSAIDs due to history of gastric ulcer recently identified on EGD evaluation on 04/22/2018. Overall, patient remained clinically stable during the hospital course. I will examine the patient at the time of discharge and discussed followup instructions. Patient ready for discharge on 2017. DISCHARGE MEDICATIONS: 1. Amlodipine 10 mg 1 tab p.o. daily. 2. BuSpar 10 mg p.o. b.i.d. 3. Lexapro 10 mg p.o. daily. 4. Tramadol 50 mg 1-2 tabs p.o. q.6 hours p.r.n. pain. 5. Ferrous sulfate 325 mg p.o. b.i.d. 6. Protonix 40 mg p.o. daily. FOLLOWUP: Patient may follow up with his primary care provider, Sravanthi Aleman M.D., within 7 days of discharge. CONDITION ON DISCHARGE: Stable. ACTIVITY: Ad randi. DIET: Heart healthy. CODE STATUS: FULL. DISPOSITION: Home on 05/06/2018.
== END 2018-05-06 16:22 | disposition home or self-care (01) ==
LOC: ERS 06:18 → 2SW 12:23
PROVIDERS: ADMIT Family Medicine; ATTEND Family Medicine
PROC: 0DJD8ZZ Inspection of Lower Intestinal Tract, Via Natural or Artificial Opening Endoscopic (ICD-10-PCS; principal; 2018-05-06)
DX: K64.8 Other hemorrhoids (principal); K63.5 Polyp of colon; K64.4 Residual hemorrhoidal skin tags; I10 Essential (primary) hypertension; F32.9 Major depressive disorder, single episode, unspecified; F17.210 Nicotine dependence, cigarettes, uncomplicated; D64.9 Anemia, unspecified; K25.9 Gastric ulcer, unspecified as acute or chronic, without hemorrhage or perforation; Z79.899 Other long term (current) drug therapy
CPT/HCPCS: 45378; 80048; 80053; 82274; 83690; 85007; 85025; 85027; 93005; 96361 ×2; 96374; 99285; G0378 ×2; 36415; 81003; 81015; C9113; J2001; J2704

== ENCOUNTER 2018-09-08 14:09 | Emergency (ER) | payer MEDICARE ==
[2018-09-08 16:18] LABS: ALT (SGPT) 17 U/L (8-55); AST (SGOT) 34 U/L (5-34); Albumin 4.2 g/dL (3.4-4.8); Alkaline Phosphatase 98 U/L (40-150); Anion Gap 15 mmol/L (10-20); BUN (Urea Nitrogen) 15 mg/dL (8.4-25.7); Bilirubin, Total 0.3 mg/dL (0.2-1.2); Calc. Creatinine Clearance 0 mL/min (70-130); Calcium 9.2 mg/dL (7.8-10.44); Carbon Dioxide 22 mmol/L (23-31); Chloride 106 mmol/L (98-107); Estimated GFR-MDRD 75; Globulin 3.2 g/dL (2.4-3.5); Glucose 105 mg/dL (83-110); Lipase Less than 4 U/L (8-78); Potassium 3.7 mmol/L (3.5-5.1); Protein, Total 7.4 g/dL (5.8-8.1); Sodium 139 mmol/L (136-145)
[2018-09-08 16:31] LABS: #Eosinphils 0.1 thou/uL (0.0-0.7); #Lymphocytes 1.4 thou/uL (1.20-3.40); #Monocytes 0.9 thou/uL (0.11-0.59); #Neutrophils 11.1 thou/uL (1.40-6.50); %Basophils 0.3 % (0.0-1.0); %Eosinophils 0.6 % (0.0-10.0); %Lymphocytes 10.4 % (21.0-51.0); %Monocytes 6.5 % (0.0-10.0); %Neutrophils 82.2 % (42.0-75.0); Hemoglobin 11.5 g/dL (14.0-18.0); Mean Corpuscular HGB CONC 34.4 g/dL (32.0-36.0); Mean Corpuscular Hemoglobin 29.4 pg (27.0-31.0); Mean Corpuscular Volume 85.3 fL (78.0-98.0); Mean Platelet Volume 6.9 fL (7.4-10.4); Platelet Count 379 thou/uL (130-400); RBC Distribution Width 16.5 % (11.5-14.5); Red Blood Cell (RBC) Count 3.92 mill/uL (4.70-6.10); White Blood Cell (WBC) Count 13.6 thou/uL (4.8-10.8)
--- NOTE | 2018-09-08 17:52 | CT ---
CT ABDOMEN AND PELVIS WITHOUT IV CONTRAST: 09/08/18 Multiple axial tomograms obtained through the abdomen and pelvis without IV enhancement. INDICATIONS: Abdominal pain. Comparison made to CT abdomen and pelvis dated 08/07/13. Lung bases clear. Liver and spleen unremarkable. Diffuse pancreatic calcifications again noted similar to the prior exa m consistent with changes from prior chronic pancreatitis. The pancreatic duct is prominent and stabl e in appearance. Adrenal glands unremarkable. Calcification in the mid cortex of the right kidney measuring approximately 1.0 cm is a stable findin g from the prior exam. There is no hydronephrosis. Urinary bladder mildly distended and unremarkable in appearance. Mild prostatic hypertrophy. Small bowel loops show mild nonspecific fluid filled distention without dilatation. This is nonspeci fic and could be seen with enteritis. Appendix is gas filled and unremarkable. Aorta is normal calibe r with atherosclerotic change. osseous structures show osteopenia and degenerative spine change. IMPRESSION: 1. Nonspecific fluid filled small bowel distention. 2. Evidence of chronic pancreatitis. 3. Stable right renal calcification. POS: [facility]
--- NOTE | 2018-09-10 22:11 | EKG ---
Test Reason : Blood Pressure : / mmHG Vent. Rate : 059 BPM Atrial Rate : 059 BPM P-R Int : 180 ms QRS Dur : 084 ms QT Int : 486 ms P-R-T Axes : 068 036 054 degrees QTc Int : 481 ms Sinus bradycardia Septal infarct , age undetermined Abnormal ECG No changes 05-MAY-18 Confirmed by RANCHO ARMSTRONG DO ([id number]), editorial writer SHERYL KOCH ([id number]) on 09/10/2018 10:10:35 PM Referred By: Confirmed By:RANCHO ARMSTRONG DO
== END 2018-09-08 17:21 | disposition home or self-care (01) ==
LOC: ERS 14:09
DX: R42 Dizziness and giddiness (principal); N39.0 Urinary tract infection, site not specified; I25.10 Atherosclerotic heart disease of native coronary artery without angina pectoris; I10 Essential (primary) hypertension; F32.9 Major depressive disorder, single episode, unspecified; F17.210 Nicotine dependence, cigarettes, uncomplicated; Z79.899 Other long term (current) drug therapy; Z79.82 Long term (current) use of aspirin
CPT/HCPCS: 36415; 74176; 80053; 83605; 83690; 84484; 85025; 93005; 94760

== ENCOUNTER 2018-09-29 21:17 | Emergency (ER) | payer MEDICARE ==
[2018-09-29 22:29] LABS: #Basophils 0.1 thou/uL (0.0-0.2); #Eosinphils 0.1 thou/uL (0.0-0.7); #Lymphocytes 2.2 thou/uL (1.20-3.40); #Monocytes 0.6 thou/uL (0.11-0.59); #Neutrophils 3.2 thou/uL (1.40-6.50); %Basophils 1.2 % (0.0-1.0); %Eosinophils 2.2 % (0.0-10.0); %Lymphocytes 34.9 % (21.0-51.0); %Neutrophils 51.7 % (42.0-75.0); Mean Corpuscular HGB CONC 34.1 g/dL (32.0-36.0); Mean Corpuscular Hemoglobin 29.9 pg (27.0-31.0); Mean Corpuscular Volume 87.6 fL (78.0-98.0); Mean Platelet Volume 7.3 fL (7.4-10.4); Platelet Count 264 thou/uL (130-400); RBC Distribution Width 16.1 % (11.5-14.5); Red Blood Cell (RBC) Count 3.69 mill/uL (4.70-6.10); White Blood Cell (WBC) Count 6.2 thou/uL (4.8-10.8)
[2018-09-29 22:35] LABS: INR-International Normal Ratio 1.1; PTT 28.4 SEC (22.9-36.1); Prothrombin Time 13.8 SEC (12.0-14.7)
[2018-09-29 22:47] LABS: ALT (SGPT) 20 U/L (8-55); AST (SGOT) 42 U/L (5-34); Albumin 3.7 g/dL (3.4-4.8); Alkaline Phosphatase 78 U/L (40-150); Anion Gap 15 mmol/L (10-20); BUN (Urea Nitrogen) 10 mg/dL (8.4-25.7); Bilirubin, Total Less than 0.2 mg/dL (0.2-1.2); Calc. Creatinine Clearance 0 mL/min (70-130); Calcium 8.8 mg/dL (7.8-10.44); Carbon Dioxide 19 mmol/L (23-31); Chloride 110 mmol/L (98-107); Estimated GFR-MDRD 59; Globulin 2.7 g/dL (2.4-3.5); Glucose 108 mg/dL (83-110); Potassium 3.8 mmol/L (3.5-5.1); Protein, Total 6.4 g/dL (5.8-8.1); Sodium 140 mmol/L (136-145)
[2018-09-29 23:31] LABS: Lipase Less than 4 U/L (8-78)
[2018-09-29 23:43] LABS: Bilirubin Negative (Negative); Blood, Urine Moderate (Negative); Clarity CLOUDY (Clear); Glucose, Urine (Dipstick) Negative (Negative); Leukocyte Large (Negative); Nitrite Negative (Negative); Protein, Urine (Dipstick) Negative (Neg-Trace); Specific Gravity, Urine 1.014 (1.002-1.036); Urobilinogen 0.2 mg/dL (0.2-1.0)
[2018-09-29 23:46] LABS: Bacteria/HPF 2+ HPF (None Seen); Hyaline Casts/LPF 0-3 HYALINE CAST LPF (0-3 Hyaline); Pathc Cast-AUWi Flag 0.14 (0-2.49); Squamous Epithelial 0-3 HPF (0-3)
--- NOTE | 2018-09-30 07:35 | CT ---
ABDOMEN AND PELVIS CT NONCONTRAST: Date: 09/29/18 COMPARISON: 09/08/18. INDICATION: Rectal bleeding. Clinical concern for colonic perforation/abscess. Note is made that patient had an IV infiltration while in the emergency department, awaiting imaging. The patient was monitored by the attending emergency department. FINDINGS: There is rounded parenchymal density of the lateral right mid kidney. Finding is stable. No interval acute abnormality at the lung bases is seen. Large volume of retained fecal material is present throu ghout the colon. No disseminated free air or significant ascites is seen. There is limited evaluation for detection of abscess without the presence of IV or enteric contrast. Diffuse vascular calcificat ions present. There are osseous degenerative changes and diffuse osseous demineralization. Multiple p ancreatic calcifications are again seen with associated atrophy. IMPRESSION: 1. Extensive constipation. 2. No disseminated free air. Limited evaluation for detection of potential abscess without the prese nce of IV or enteric contrast. 3. No obvious ascites is seen, within limitations. POS: [facility]
== END 2018-09-30 01:34 | disposition home or self-care (01) ==
LOC: ERS 21:17
DX: K59.00 Constipation, unspecified (principal); K64.4 Residual hemorrhoidal skin tags; N30.90 Cystitis, unspecified without hematuria; I10 Essential (primary) hypertension; F17.210 Nicotine dependence, cigarettes, uncomplicated
CPT/HCPCS: 36415; 74176; 80053; 81003; 81015; 83690; 84443; 85025; 85610; 85730; 87077; 87086; 87186

== ENCOUNTER 2018-11-07 21:57 | Emergency (ER) | payer MEDICARE ==
[2018-11-08 00:15] LABS: #Eosinphils 0.1 thou/uL (0.0-0.7); #Lymphocytes 2.2 thou/uL (1.20-3.40); #Neutrophils 3.4 thou/uL (1.40-6.50); %Basophils 0.7 % (0.0-1.0); %Eosinophils 1.9 % (0.0-10.0); %Monocytes 14.3 % (0.0-10.0); %Neutrophils 51.1 % (42.0-75.0); Hemoglobin 8.9 g/dL (14.0-18.0); Mean Corpuscular HGB CONC 33.8 g/dL (32.0-36.0); Mean Corpuscular Hemoglobin 30.4 pg (27.0-31.0); Mean Corpuscular Volume 89.9 fL (78.0-98.0); Platelet Count 399 thou/uL (130-400); RBC Distribution Width 16.9 % (11.5-14.5); Red Blood Cell (RBC) Count 2.92 mill/uL (4.70-6.10); White Blood Cell (WBC) Count 6.7 thou/uL (4.8-10.8)
[2018-11-08 00:43] LABS: ALT (SGPT) 15 U/L (8-55); AST (SGOT) 22 U/L (5-34); Albumin 3.9 g/dL (3.4-4.8); Alkaline Phosphatase 98 U/L (40-150); Anion Gap 13 mmol/L (10-20); BUN (Urea Nitrogen) 16 mg/dL (8.4-25.7); Bilirubin, Total Less than 0.2 mg/dL (0.2-1.2); CK (CPK) 188 U/L (30-200); Calc. Creatinine Clearance 0 mL/min (70-130); Carbon Dioxide 23 mmol/L (23-31); Chloride 107 mmol/L (98-107); Estimated GFR-MDRD 79; Globulin 2.6 g/dL (2.4-3.5); Glucose 95 mg/dL (83-110); Protein, Total 6.5 g/dL (5.8-8.1); Sodium 139 mmol/L (136-145)
[2018-11-08] MEDS ORDERED: Morphine 4 MG/ML VIAL ONE (03:34)
[2018-11-08 05:00] LABS: Bilirubin Negative (Negative); Blood, Urine Trace (Negative); Clarity Cloudy (Clear); Glucose, Urine (Dipstick) Negative (Negative); Leukocyte Small (Negative); Nitrite Positive (Negative); Protein, Urine (Dipstick) Negative (Neg-Trace); Urobilinogen 0.2 mg/dL (0.2-1.0); pH, Urine 8.5 (5.0-9.0)
[2018-11-08 05:15] LABS: Bacteria/HPF 3+ HPF (None Seen); Trichomonas/HPF None Seen HPF (None Seen); Yeast-All Forms None Seen HPF (None Seen)
[2018-11-08 05:17] LABS: Crystals/HPF 2+ TRIPLE PHOS HPF (Negative)
--- NOTE | 2018-11-08 07:58 | CT ---
CT OF THE ABDOMEN AND PELVIS WITH IV CONTRAST: Date: 11/08/18 INDICATION: 78-year-old male with abdominal pain. COMPARISON: Prior exam dated 08/07/[address] of the abdomen and pelvis dated 09/29/18. FINDINGS: Lung bases are clear. There is atrophic appearance of the pancreas with associated calcifications consistent with changes o f prior chronic pancreatitis. The liver, spleen, adrenal glands, and left kidney are normal appearing. Renal cortical calcification involving the right mid kidney with associated right inferior pole cyst is stable. There are moderate calcifications involving the abdominal aorta. No free fluid or free air is evident . There is a prominent amount of retained stool within the colon. Bladder is partially decompressed. Th ere is a normal retrocecal appendix. There is diffuse osteopenia and scattered degenerative change. No definite acute osseous abnormality is evident. IMPRESSION: 1. Prominent amount of retained stool. 2. Findings of prior chronic pancreatitis. 3. Stable right renal cortical calcification and small right renal cyst. 4. Normal appendix. POS: [facility]
--- NOTE | 2018-11-08 08:48 | RAD ---
PA AND LATERAL CHEST RADIOGRAPH: Date: 11-07-18 History: Left sided abdominal pain. Comparison: 10-20-16 FINDINGS: Loop recorder device again overlies the left hilar region. Cardiac silhouette and pulmonary vasculatu re are within normal limits. Lungs remain clear. Nodular densities projecting over the right midlung zone less apparent. Lungs again appear mildly hyperinflated but clear. There has been no significant interval change from prior study. IMPRESSION: No acute cardiopulmonary process. POS: [facility]
[2018-11-08] MEDS ORDERED: ISOVUE-370 76%-LOCM 1 ML ONE (11:23)
--- NOTE | 2018-11-12 09:27 | EKG ---
Test Reason : Blood Pressure : / mmHG Vent. Rate : 076 BPM Atrial Rate : 076 BPM P-R Int : 162 ms QRS Dur : 084 ms QT Int : 432 ms P-R-T Axes : 062 011 058 degrees QTc Int : 486 ms Poor data quality, interpretation may be adversely affected Normal sinus rhythm Prolonged QT Abnormal ECG Confirmed by TYLER LYON ([id number]), senior technical editor MERY ADAMS ([id number]) on 11/12/2018 9:26:27 AM Referred By: Confirmed By:TYLER LYON
== END 2018-11-08 05:48 | disposition home or self-care (01) ==
LOC: ERS 21:57
DX: N39.0 Urinary tract infection, site not specified (principal); I10 Essential (primary) hypertension; F32.9 Major depressive disorder, single episode, unspecified; F17.210 Nicotine dependence, cigarettes, uncomplicated; Z87.442 Personal history of urinary calculi; Z79.899 Other long term (current) drug therapy
CPT/HCPCS: 36415; 71046; 74177; 80053; 81003; 81015; 82550; 83690; 84484; 85025; 87077; 87086; 87186; 93005; 96361; 96374; J2270; Q9966

== ENCOUNTER 2019-03-02 09:56 | Emergency (ER) | payer MEDICARE ==
[2019-03-02] MEDS ORDERED: Methocarbamol 500 MG TAB PO SCH (10:45)
== END 2019-03-02 11:12 | disposition home or self-care (01) ==
LOC: ERS 09:56
DX: K64.9 Unspecified hemorrhoids (principal); M54.2 Cervicalgia; I25.10 Atherosclerotic heart disease of native coronary artery without angina pectoris; F32.9 Major depressive disorder, single episode, unspecified; F17.210 Nicotine dependence, cigarettes, uncomplicated; Z79.899 Other long term (current) drug therapy
CPT/HCPCS: 99283

== ENCOUNTER 2019-08-13 13:29 | Emergency (ER) | payer MEDICARE ==
[2019-08-13 14:09] LABS: Prothrombin Time 13.5 SEC (12.0-14.7)
[2019-08-13 14:26] LABS: ALT (SGPT) 18 U/L (8-55); AST (SGOT) 27 U/L (5-34); Albumin 3.9 g/dL (3.4-4.8); Alkaline Phosphatase 76 U/L (40-110); Anion Gap 13 mmol/L (10-20); BUN (Urea Nitrogen) 7 mg/dL (8.4-25.7); Bilirubin, Total 0.3 mg/dL (0.2-1.2); Calc. Creatinine Clearance 0 mL/min (70-130); Calcium 8.8 mg/dL (7.8-10.44); Carbon Dioxide 19 mmol/L (23-31); Chloride 105 mmol/L (98-107); Estimated GFR-MDRD 86; Globulin 2.7 g/dL (2.4-3.5); Glucose 115 mg/dL (83-110); Potassium 3.7 mmol/L (3.5-5.1); Protein, Total 6.6 g/dL (5.8-8.1); Sodium 133 mmol/L (136-145)
[2019-08-13 14:56] LABS: #Basophils 0.1 thou/uL (0.0-0.2); #Eosinphils 0.1 thou/uL (0.0-0.7); #Lymphocytes 2.1 thou/uL (1.20-3.40); #Monocytes 1.3 thou/uL (0.11-0.59); #Neutrophils 5.7 thou/uL (1.40-6.50); %Basophils 0.5 % (0.0-1.0); %Eosinophils 1.6 % (0.0-10.0); %Lymphocytes 22.8 % (21.0-51.0); %Neutrophils 61.1 % (42.0-75.0); Hemoglobin 10.2 g/dL (14.0-18.0); Mean Corpuscular HGB CONC 34.7 g/dL (32.0-36.0); Mean Corpuscular Hemoglobin 32.1 pg (27.0-31.0); Mean Corpuscular Volume 92.5 fL (78.0-98.0); Mean Platelet Volume 7.5 fL (7.4-10.4); Platelet Count 289 thou/uL (130-400); RBC Distribution Width 14.4 % (11.5-14.5); Red Blood Cell (RBC) Count 3.19 mill/uL (4.70-6.10); White Blood Cell (WBC) Count 9.3 thou/uL (4.8-10.8)
[2019-08-13] MEDS ORDERED: Labetalol HCl 100 MG/20 ML VIAL ONE (16:10)
== END 2019-08-13 18:09 | disposition home or self-care (01) ==
LOC: ERS 13:29
DX: K64.8 Other hemorrhoids (principal); F17.210 Nicotine dependence, cigarettes, uncomplicated; I25.10 Atherosclerotic heart disease of native coronary artery without angina pectoris; I10 Essential (primary) hypertension; F32.9 Major depressive disorder, single episode, unspecified; Z87.442 Personal history of urinary calculi; Z79.891 Long term (current) use of opiate analgesic; Z79.899 Other long term (current) drug therapy
CPT/HCPCS: 36415; 80053; 85025; 85610; 85730; 96372; 99283

== ENCOUNTER 2019-10-03 13:32 | Observation (INO) | payer MEDICARE ==
[2019-10-03 14:02] LABS: #Eosinphils 0.1 thou/uL (0.0-0.7); #Lymphocytes 2.3 thou/uL (1.20-3.40); #Monocytes 0.7 thou/uL (0.11-0.59); #Neutrophils 4.3 thou/uL (1.40-6.50); %Basophils 0.5 % (0.0-1.0); %Eosinophils 0.9 % (0.0-10.0); %Lymphocytes 30.9 % (21.0-51.0); %Monocytes 9.2 % (0.0-10.0); %Neutrophils 58.4 % (42.0-75.0); Hemoglobin 10.4 g/dL (14.0-18.0); Mean Corpuscular HGB CONC 34.1 g/dL (32.0-36.0); Mean Corpuscular Hemoglobin 31.1 pg (27.0-31.0); Mean Corpuscular Volume 91.1 fL (78.0-98.0); Mean Platelet Volume 7.5 fL (7.4-10.4); Platelet Count 191 thou/uL (130-400); RBC Distribution Width 14.4 % (11.5-14.5); Red Blood Cell (RBC) Count 3.34 mill/uL (4.70-6.10); White Blood Cell (WBC) Count 7.3 thou/uL (4.8-10.8)
[2019-10-03 14:18] LABS: ALT (SGPT) 22 U/L (8-55); AST (SGOT) 30 U/L (5-34); Albumin 3.2 g/dL (3.4-4.8); Alkaline Phosphatase 95 U/L (40-110); Anion Gap 14 mmol/L (10-20); BUN (Urea Nitrogen) 8 mg/dL (8.4-25.7); Bilirubin, Total 0.3 mg/dL (0.2-1.2); Calc. Creatinine Clearance 0 mL/min (70-130); Calcium 8.1 mg/dL (7.8-10.44); Carbon Dioxide 16 mmol/L (23-31); Chloride 112 mmol/L (98-107); Estimated GFR-MDRD 67; Globulin 2.6 g/dL (2.4-3.5); Glucose 137 mg/dL (83-110); Protein, Total 5.8 g/dL (5.8-8.1); Sodium 139 mmol/L (136-145)
[2019-10-03 14:27] LABS: Potassium 2.9 mmol/L (3.5-5.1)
[2019-10-03 17:28] LABS: Bacteria/HPF 4+ HPF (None Seen); Bilirubin Negative (Negative); Blood, Urine Trace (Negative); Clarity Extra Turbid (Clear); Glucose, Urine (Dipstick) Normal (Negative); Leukocyte 500 Leu/uL (Negative); Nitrite 2+ (Negative); Protein, Urine (Dipstick) 50 mg/dL (Neg-Trace); Squamous Epithelial 0-3 HPF (0-3); Triple Phosphate Crystal Rare HPF (None Seen); Urobilinogen Normal mg/dL (Less than 2); WBC/HPF Greater than 50 HPF (0-3)
[2019-10-03] MEDS ORDERED: Aspirin Chewable 81 MG TAB ONE (18:28)
[2019-10-03] MEDS ORDERED: Morphine 4 MG/ML VIAL ONE (18:28)
[2019-10-03] MEDS ORDERED: Potassium Chloride 20 MEQ TAB ONE (18:28)
[2019-10-03] MEDS ORDERED: cefTRIAXone\\ROCEPHIN 2 GM VIAL ONE (18:28)
[2019-10-03] MEDS ORDERED: Amlodipine 5 MG TAB ONE (19:05)
[2019-10-03] MEDS ORDERED: Nitroglycerin 0.4 MG TAB 1 EACH ONE (19:05)
[2019-10-03] MEDS ORDERED: Acetaminophen 325 MG TAB PO PRN (20:02)
--- NOTE | 2019-10-03 20:52 | PDOC.EVN ---
Event Note - Event Note Event Note: [id number] HP
[2019-10-03] MEDS ORDERED: Famotidine/PF 20 mg/2ml Vial SLOW IVP SCH (21:00)
[2019-10-03 21:16] LABS: Troponin I Less than 0.010 ng/mL (< 0.028)
[2019-10-03 21:55] VITALS: BMI 14.6
[2019-10-03] MEDS: Sodium Chloride 0.9% 1,000 ML IV SCH (22:23)
[2019-10-03] MEDS: Potassium Chloride 20 MEQ in Premix Bag 1 BAG IVPB SCH ×2 (22:34→22:40)
[2019-10-03] MEDS ORDERED: Acetaminophen/Codeine 30-300mg Tablet PO PRN (22:49)
[2019-10-03] MEDS ORDERED: Acetaminophen/Codeine 30-300mg Tablet PO SCH (23:00)
[2019-10-04 00:25] LABS: Troponin I Less than 0.010 ng/mL (< 0.028)
--- NOTE | 2019-10-04 00:36 | HP ---
CHIEF COMPLAINT: Nausea and diarrhea. HISTORY OF PRESENT ILLNESS: Mr. Pendleton is a 79-year-old male with past medical history of coronary artery disease, cardiac stents; kidney stones; hypertension; pancreatitis; peptic ulcer; among others, presents to the emergency room with abdominal pain and diarrhea, generalized body aches and pains that started around Wednesday. Also, the patient has been feeling dizzy. He denies vomiting. EMERGENCY DEPARTMENT COURSE: Patient was found to have urinary tract infection. He also was found to be hypokalemic with a potassium of 2.9. The patient was started on IV fluids. Potassium being replaced. The patient is on IV antibiotics. The patient is being admitted to hospital for further management. PAST MEDICAL HISTORY: 1. Coronary artery disease. 2. Kidney stones. 3. Hypertension. 4. Hemorrhoids. 5. Pancreatitis. 6. Peptic ulcer. PAST SURGICAL HISTORY: 1. Back surgery. 2. Cardiac stent placement. SOCIAL HISTORY: The patient drinks socially. The patient currently uses tobacco, smokes cigarettes. FAMILY HISTORY: Reviewed and noncontributory. HOME MEDICATIONS: Please see home medication reconciliation form for updated medications. ALLERGIES: NO KNOWN ALLERGIES. REVIEW OF SYSTEMS: Review of 14 systems negative except what is mentioned in history of present illness. PHYSICAL EXAMINATION: GENERAL: The patient is awake, alert, in moderate distress. VITAL SIGNS: Blood pressure is 157/78, pulse is 64, respiratory rate is 15, temperature 98, pulse oximetry is 100%. HEAD AND NECK: Normocephalic, atraumatic. Oral mucosa dry. HEART: S1, S2. Regular. ABDOMEN: Soft with lower abdominal tenderness. NEUROLOGIC: Awake, alert, and oriented x3. No focal deficits. PSYCHIATRIC: Unable to assess. EXTREMITIES: No clubbing or cyanosis. LABORATORY DATA: Urine is positive for bacteria, wbc's. Electrolytes, potassium is 2.9, BUN is 8, glucose 137. CBC; WBC 7.3, hemoglobin 10.4, troponin 0.01. Magnesium 1.8. ASSESSMENT: 1. Acute urinary tract infection. 2. Acute hypokalemia. 3. Diarrhea. 4. Dehydration. 5. Coronary artery disease. PLAN: 1. Admit. 2. IV fluid hydration. 3. Potassium replacement. 4. Reconcile home medications. 5. DVT prophylaxis as appropriate. 6. Expected length of stay at least 1 midnight if patient is stable and he has significant clinical improvement. Job ID: [id number]
[2019-10-04] MEDS ORDERED: traMADol HCl 50 MG TAB PO SCH (05:15)
[2019-10-04 05:21] LABS: Anion Gap 9 mmol/L (10-20); BUN (Urea Nitrogen) 6 mg/dL (8.4-25.7); Calc. Creatinine Clearance 50 mL/min (70-130); Calcium 7.9 mg/dL (7.8-10.44); Carbon Dioxide 20 mmol/L (23-31); Chloride 114 mmol/L (98-107); Estimated GFR-MDRD Greater than 90; Glucose 70 mg/dL (83-110); Potassium 3.5 mmol/L (3.5-5.1); Sodium 139 mmol/L (136-145)
[2019-10-04 05:59] LABS: Band 1 % (5-11); Eosinophils 1 % (0-10); Lymphocytes 22 % (21-51); MDiff Complete? YES; Mean Corpuscular HGB CONC 34.4 g/dL (32.0-36.0); Mean Corpuscular Hemoglobin 31.8 pg (27.0-31.0); Mean Corpuscular Volume 92.3 fL (78.0-98.0); Mean Platelet Volume 7.2 fL (7.4-10.4); Monocytes 4 % (0-10); Neutrophil 72 % (42-75); Platelet Count 289 thou/uL (130-400); RBC Distribution Width 14.5 % (11.5-14.5); Red Blood Cell (RBC) Count 2.83 mill/uL (4.70-6.10); White Blood Cell (WBC) Count 7.8 thou/uL (4.8-10.8)
[2019-10-04] MEDS ORDERED: Potassium Chloride 20 MEQ TAB PO SCH (08:12)
[2019-10-04] MEDS ORDERED: Amlodipine 10 MG TAB PO SCH (09:00)
[2019-10-04] MEDS ORDERED: Escitalopram Oxalate 10 mg Tablet PO SCH (09:00)
[2019-10-04] MEDS ORDERED: Enoxaparin Sodium 30 MG/0.3 ML SYRINGE SC SCH (09:00)
[2019-10-04] MEDS ORDERED: busPIRone HCl 10 MG TAB PO SCH (09:00)
[2019-10-04 11:37] VITALS: BP 122/68; TEMP 97.5
[2019-10-04] MEDS: Sodium Chloride 0.9% 1,000 ML IV SCH (14:27)
[2019-10-04] MEDS ORDERED: cefTRIAXone\\ROCEPHIN 1 GM in Sodium Chloride 0.9% 100 ML IVPB SCH (18:00)
--- NOTE | 2019-10-05 13:38 | DIS ---
DATE OF ADMISSION: 10/03/2019 DATE OF DISCHARGE: 10/04/2019 HOSPITAL COURSE: Mr. Pendleton is a 79-year-old male with a medical history of coronary artery disease with cardiac stent, kidney stones, hypertension, pancreatitis, peptic ulcer. He presented to the emergency room with abdominal pain and diarrhea, generalized body aches. He was diagnosed with complicated urinary tract infection and hypokalemia. During his inpatient stay, antibiotics were initiated and the patient's symptoms resolved, and the patient's potassium was replaced. The patient was discharged home on continued antibiotics for treatment of his complicated urinary tract infection, and his potassium levels were checked prior to discharge and were normal. His vitals were unremarkable. PHYSICAL EXAMINATION: GENERAL: He is awake, alert, and in no distress. HEAD AND NECK: There is no lymphadenopathy, submandibular, postauricular, anterior, or posterior neck. No throat erythema or exudate. HEART: Regular rhythm and rate. No murmurs. No gallops. ABDOMEN: Soft with mild lower abdominal tenderness. NEUROLOGIC: Proper mood and affect. Alert and oriented x3. No focal deficits. ASSESSMENT AND PLAN: Mr. Pendleton is a 79-year-old male, who presented with complicated urinary tract infection. Urinary culture was not collected prior to administration of antibiotics and the patient symptomatically improved. The patient was discharged on levofloxacin based on previous urinary tract infection susceptibilities and the patient's response to inpatient antibiotic. The patient was educated regarding nonresolution of symptoms and reporting event to his primary care physician for possible readmission in order to treat via IV antibiotics. Job ID: [id number]
== END 2019-10-04 15:47 | disposition home or self-care (01) ==
LOC: ERS 13:32 → 2SW 18:28
PROVIDERS: ADMIT Emergency Medicine; ATTEND Emergency Medicine
DX: N39.0 Urinary tract infection, site not specified (principal); E87.6 Hypokalemia; R19.7 Diarrhea, unspecified; E86.0 Dehydration; I25.10 Atherosclerotic heart disease of native coronary artery without angina pectoris; I10 Essential (primary) hypertension; F17.210 Nicotine dependence, cigarettes, uncomplicated; Z79.899 Other long term (current) drug therapy; Z95.5 Presence of coronary angioplasty implant and graft
CPT/HCPCS: 80048; 80053; 83735; 84484 ×2; 85025 ×2; 93005; 96361; 96365; 96366; 96367; 96372; 96375; 99285; G0378 ×3; 36415; 81003; 81015; J0696; J1650; J2270; J3480; S0028

== ENCOUNTER 2020-10-09 15:12 | Inpatient (IN) | payer MEDICARE ==
[~2020-10-09 15:12] MED LIST: Iopamidol-370 76% 500 ML 1 ML ONE
[2020-10-09 16:31] LABS: #Basophils 0.1 thou/uL (0.0-0.2); #Eosinphils 0.1 thou/uL (0.0-0.7); #Lymphocytes 1.7 thou/uL (1.20-3.40); #Monocytes 0.7 thou/uL (0.11-0.59); #Neutrophils 4.2 thou/uL (1.40-6.50); %Basophils 0.9 % (0.0-1.0); %Lymphocytes 25.5 % (21.0-51.0); %Monocytes 10.1 % (0.0-10.0); %Neutrophils 62.6 % (42.0-75.0); Hemoglobin 11.7 g/dL (14.0-18.0); Mean Corpuscular HGB CONC 35.8 g/dL (32.0-36.0); Mean Corpuscular Hemoglobin 34.8 pg (27.0-31.0); Mean Corpuscular Volume 97.3 fL (78.0-98.0); Mean Platelet Volume 7.9 fL (7.4-10.4); Platelet Count 316 thou/uL (130-400); RBC Distribution Width 14.5 % (11.5-14.5); Red Blood Cell (RBC) Count 3.35 mill/uL (4.70-6.10); White Blood Cell (WBC) Count 6.7 thou/uL (4.8-10.8)
[2020-10-09 16:53] LABS: ALT (SGPT) 46 U/L (8-55); AST (SGOT) 101 U/L (5-34); Albumin 2.7 g/dL (3.4-4.8); Alkaline Phosphatase 111 U/L (40-110); Anion Gap 14 mmol/L (10-20); BUN (Urea Nitrogen) 11 mg/dL (8.4-25.7); Bilirubin, Total 0.2 mg/dL (0.2-1.2); Calc. Creatinine Clearance 0 mL/min (70-130); Carbon Dioxide 21 mmol/L (23-31); Chloride 106 mmol/L (98-107); Globulin 2.9 g/dL (2.4-3.5); Glucose 116 mg/dL (83-110); Lipase 16 U/L (8-78); Magnesium 2.1 mg/dL (1.6-2.6); Potassium 4.2 mmol/L (3.5-5.1); Protein, Total 5.6 g/dL (5.8-8.1); Sodium 137 mmol/L (136-145)
[2020-10-09 17:41] LABS: Bacteria/HPF 2+ HPF (None Seen); Bilirubin Negative (Negative); Blood, Urine 1+ (Negative); Clarity Turbid (Clear); Glucose, Urine (Dipstick) Normal (Negative); Ketone, Urine Negative (Negative); Leukocyte 500 Leu/uL (Negative); Nitrite 2+ (Negative); Protein, Urine (Dipstick) 10 mg/dL (Neg-Trace); Specific Gravity, Urine 1.016 (1.002-1.036); Squamous Epithelial 0-3 HPF (0-3); Urobilinogen Normal mg/dL (Less than 2); WBC/HPF Greater than 50 HPF (0-3)
[2020-10-09] MEDS ORDERED: cefTRIAXone\\ROCEPHIN 1 GM VIAL ONE (18:28)
[2020-10-09 19:37] LABS: Lactic Acid 2.8 mmol/L (0.5-2.2)
[2020-10-09 21:33] VITALS: BMI 15.6
[2020-10-09 21:43] LABS: #Basophils 0.1 thou/uL (0.0-0.2); #Eosinphils 0.1 thou/uL (0.0-0.7); #Monocytes 0.7 thou/uL (0.11-0.59); #Neutrophils 5.5 thou/uL (1.40-6.50); %Basophils 0.9 % (0.0-1.0); %Eosinophils 0.8 % (0.0-10.0); %Lymphocytes 24.3 % (21.0-51.0); %Monocytes 8.4 % (0.0-10.0); %Neutrophils 65.6 % (42.0-75.0); Hemoglobin 10.9 g/dL (14.0-18.0); Mean Corpuscular HGB CONC 35.5 g/dL (32.0-36.0); Mean Corpuscular Hemoglobin 34.9 pg (27.0-31.0); Mean Corpuscular Volume 98.3 fL (78.0-98.0); Mean Platelet Volume 7.2 fL (7.4-10.4); Platelet Count 273 thou/uL (130-400); RBC Distribution Width 14.4 % (11.5-14.5); Red Blood Cell (RBC) Count 3.12 mill/uL (4.70-6.10); White Blood Cell (WBC) Count 8.4 thou/uL (4.8-10.8)
[2020-10-09 22:01] LABS: Lactic Acid 1.9 mmol/L (0.5-2.2)
[2020-10-10] MEDS: Piperacillin/Tazobactam 3.375 GM in Sodium Chloride 0.9% 100 ML IVPB SCH ×4 (00:44→18:07)
[2020-10-10] MEDS ORDERED: cloNIDine 0.1 MG TAB PO PRN (02:07)
[2020-10-10] MEDS ORDERED: Acetaminophen 325 MG TAB PO PRN (02:07)
[2020-10-10] MEDS ORDERED: Labetalol HCl 100 MG/20 ML VIAL SLOW IVP PRN (02:07)
[2020-10-10] MEDS ORDERED: hydrALAZINE 20 MG/ML VIAL SLOW IVP PRN (02:07)
[2020-10-10] MEDS ORDERED: Ondansetron PF 4 MG/2 ML Vial IVP PRN (02:07)
[2020-10-10] MEDS ORDERED: Promethazine HCl 12.5 MG in Sodium Chloride 0.9% 50 ML IVPB PRN (02:07)
[2020-10-10] MEDS ORDERED: Hydrocortisone Acetate 25 MG Suppository PR PRN (02:08)
[2020-10-10] MEDS ORDERED: Electrolyte Replacement Protocol 1 EACH FS PRN (02:15)
[2020-10-10] MEDS: Sodium Chloride 0.9% 1,000 ML IV SCH ×3 (03:19→19:43)
[2020-10-10 06:30] LABS: #Eosinphils 0.1 thou/uL (0.0-0.7); #Monocytes 0.7 thou/uL (0.11-0.59); #Neutrophils 4.7 thou/uL (1.40-6.50); %Basophils 0.2 % (0.0-1.0); %Eosinophils 0.9 % (0.0-10.0); %Lymphocytes 26.7 % (21.0-51.0); %Monocytes 9.7 % (0.0-10.0); %Neutrophils 62.4 % (42.0-75.0); Hemoglobin 11.3 g/dL (14.0-18.0); Mean Corpuscular HGB CONC 36.3 g/dL (32.0-36.0); Mean Corpuscular Hemoglobin 35.6 pg (27.0-31.0); Mean Corpuscular Volume 98.1 fL (78.0-98.0); Mean Platelet Volume 8.2 fL (7.4-10.4); Platelet Count 280 thou/uL (130-400); RBC Distribution Width 14.4 % (11.5-14.5); Red Blood Cell (RBC) Count 3.19 mill/uL (4.70-6.10); White Blood Cell (WBC) Count 7.5 thou/uL (4.8-10.8)
[2020-10-10 06:40] LABS: Anion Gap 12 mmol/L (10-20); BUN (Urea Nitrogen) 9 mg/dL (8.4-25.7); Calc. Creatinine Clearance 54 mL/min (70-130); Calcium 7.7 mg/dL (7.8-10.44); Carbon Dioxide 22 mmol/L (23-31); Chloride 107 mmol/L (98-107); Glucose 69 mg/dL (83-110); Potassium 4.4 mmol/L (3.5-5.1); Sodium 137 mmol/L (136-145)
[2020-10-10] MEDS ORDERED: Magnesium 2 GM/50 ML 2 GM in Premix Bag 1 BAG IVPB SCH (08:00)
[2020-10-10 08:31] LABS: ALT (SGPT) 36 U/L (8-55); AST (SGOT) 48 U/L (5-34); Albumin 2.5 g/dL (3.4-4.8); Alkaline Phosphatase 101 U/L (40-110); Bilirubin, Direct 0.2 mg/dL (0.1-0.3); Bilirubin, Total 0.3 mg/dL (0.2-1.2)
[2020-10-10] MEDS: Acetaminophen/Codeine 30-300mg Tablet PO PRN (08:43)
[2020-10-10] MEDS: Escitalopram Oxalate 10 mg Tablet PO SCH (08:43)
[2020-10-10] MEDS: Amlodipine 10 MG TAB PO SCH (08:44)
[2020-10-10] MEDS: Pantoprazole 40 MG GRANULES PACKET PO SCH (08:44)
[2020-10-10] MEDS: busPIRone HCl 10 MG TAB PO SCH ×2 (08:44→19:42)
[2020-10-10 23:07] LABS: SARS-CoV-2 PCR NAA for Saliva Not Detected (NotDetected)
[2020-10-11] MEDS: Piperacillin/Tazobactam 3.375 GM in Sodium Chloride 0.9% 100 ML IVPB SCH ×3 (00:08→11:30)
[2020-10-11] MEDS: Acetaminophen/Codeine 30-300mg Tablet PO PRN (04:22)
[2020-10-11 05:45] LABS: #Basophils 0.1 thou/uL (0.0-0.2); #Eosinphils 0.1 thou/uL (0.0-0.7); #Lymphocytes 2.1 thou/uL (1.20-3.40); #Monocytes 0.8 thou/uL (0.11-0.59); #Neutrophils 3.9 thou/uL (1.40-6.50); %Basophils 1.2 % (0.0-1.0); %Eosinophils 1.2 % (0.0-10.0); %Lymphocytes 30.1 % (21.0-51.0); %Monocytes 11.3 % (0.0-10.0); %Neutrophils 56.2 % (42.0-75.0); Hemoglobin 10.7 g/dL (14.0-18.0); Mean Corpuscular HGB CONC 35.2 g/dL (32.0-36.0); Mean Corpuscular Hemoglobin 34.9 pg (27.0-31.0); Platelet Count 265 thou/uL (130-400); RBC Distribution Width 14.5 % (11.5-14.5); Red Blood Cell (RBC) Count 3.07 mill/uL (4.70-6.10); White Blood Cell (WBC) Count 6.9 thou/uL (4.8-10.8)
[2020-10-11 05:49] LABS: Anion Gap 9 mmol/L (10-20); BUN (Urea Nitrogen) 8 mg/dL (8.4-25.7); Calc. Creatinine Clearance 50 mL/min (70-130); Calcium 7.7 mg/dL (7.8-10.44); Carbon Dioxide 23 mmol/L (23-31); Chloride 108 mmol/L (98-107); Glucose 65 mg/dL (83-110); Magnesium 2.1 mg/dL (1.6-2.6); Potassium 4.2 mmol/L (3.5-5.1); Sodium 136 mmol/L (136-145)
[2020-10-11] MEDS: Sodium Chloride 0.9% 1,000 ML IV SCH (05:55)
[2020-10-11] MEDS: Pantoprazole 40 MG GRANULES PACKET PO SCH (08:41)
[2020-10-11] MEDS: busPIRone HCl 10 MG TAB PO SCH (08:42)
[2020-10-11] MEDS: Amlodipine 10 MG TAB PO SCH (08:42)
[2020-10-11] MEDS: Escitalopram Oxalate 10 mg Tablet PO SCH (08:42)
[2020-10-11 09:01] VITALS: BP 154/67; TEMP 97.6
== END 2020-10-11 13:44 | disposition home or self-care (01) | DRG 690 ==
LOC: ERS 15:12 → T4-A 19:58 → OBSVTOIN 10-10 14:53
PROVIDERS: ADMIT Internal Medicine; ATTEND Hospitalist
DX: N39.0 Urinary tract infection, site not specified (principal); K62.5 Hemorrhage of anus and rectum; R64 Cachexia; E46 Unspecified protein-calorie malnutrition; Z68.1 Body mass index [BMI] 19.9 or less, adult; E87.2 Acidosis; K86.1 Other chronic pancreatitis; K64.8 Other hemorrhoids; I10 Essential (primary) hypertension; F32.9 Major depressive disorder, single episode, unspecified; F17.210 Nicotine dependence, cigarettes, uncomplicated; K52.9 Noninfective gastroenteritis and colitis, unspecified; K82.8 Other specified diseases of gallbladder; E86.0 Dehydration; K86.89 Other specified diseases of pancreas; I25.118 Atherosclerotic heart disease of native coronary artery with other forms of angina pectoris; K83.8 Other specified diseases of biliary tract; I95.1 Orthostatic hypotension; K27.9 Peptic ulcer, site unspecified, unspecified as acute or chronic, without hemorrhage or perforation; Z95.5 Presence of coronary angioplasty implant and graft; Z98.890 Other specified postprocedural states; Z79.899 Other long term (current) drug therapy; K64.4 Residual hemorrhoidal skin tags
CPT/HCPCS: 36415; 71045; 74177; 80048; 80053; 80076; 81003; 81015; 82270; 83605; 83690; 83735; 85025; 86850; 86900; 86901; 87040; 87077; 87086; 87186; 87635; 93005; 96365; J0696; J2543; J3475; J3490; Q9967; U0003; U0005

== ENCOUNTER 2021-01-06 12:38 | Outpatient (CLI) | payer MEDICARE ==
[2021-01-07 01:30] LABS: SARS-CoV-2 PCR by NAA Not Detected (NotDetected)
== END 2021-01-06 12:39 | disposition home or self-care (01) ==
LOC: LABBT 12:38
PROVIDERS: ATTEND Internal Medicine Gastroenterology
DX: Z01.812 Encounter for preprocedural laboratory examination (principal); D49.0 Neoplasm of unspecified behavior of digestive system; Z20.822 Contact with and (suspected) exposure to COVID-19
CPT/HCPCS: U0003; U0005; 87635

== ENCOUNTER 2021-01-08 06:20 | Day surgery (SDC) | payer MEDICARE ==
[2021-01-08] MEDS ORDERED: Lidocaine 1% PF 5 ML VIAL ONE (09:50)
[2021-01-08] MEDS ORDERED: PROPOFOL 200 MG/20 ML VIAL ONE (09:50)
== END 2021-01-08 11:00 | disposition home or self-care (01) ==
LOC: SDC 06:20
PROVIDERS: ATTEND Internal Medicine Gastroenterology
PROC: 0DJ08ZZ Inspection of Upper Intestinal Tract, Via Natural or Artificial Opening Endoscopic (ICD-10-PCS; principal; 2021-01-08)
DX: K22.8 Other specified diseases of esophagus (principal); K86.1 Other chronic pancreatitis; D64.9 Anemia, unspecified; M19.90 Unspecified osteoarthritis, unspecified site; I10 Essential (primary) hypertension; F17.210 Nicotine dependence, cigarettes, uncomplicated; Z79.899 Other long term (current) drug therapy
CPT/HCPCS: J2704

== ENCOUNTER 2022-11-25 15:53 | Emergency (ER) | payer OTHER, MEDICARE ==
[2022-11-25 17:00] LABS: Hemoglobin 11.4 g/dL (14.0-18.0); Mean Corpuscular HGB CONC 35.5 g/dL (32.0-36.0); Mean Corpuscular Volume 90.3 fl (78.0-98.0); Mean Platelet Volume 7.8 fL (7.4-10.4); Platelet Count 179 10x3/uL (130-400); RBC Distribution Width 14.2 % (11.5-14.5); Red Blood Cell (RBC) Count 3.57 mill/uL (4.70-6.10); White Blood Cell (WBC) Count 6.3 10x3/uL (4.8-10.8)
[2022-11-25 17:17] LABS: Eosinophils 2 % (0-10); Lymphocytes 31 % (21-51); MDiff Complete? YES; Monocytes 7 % (0-10); Neutrophil 50 % (42-75); Platelet Morphology Comment Appears Adequate; Polychromasia SLIGHT = 2-3 cells (100X) (0-2/hpf); Reactive Lymphocytes 8 % (0-10); Target Cells MODERATE= 6-15 cells (100X) (0-1/hpf)
[2022-11-25 17:21] LABS: ALT (SGPT) 60 U/L (8-55); AST (SGOT) 136 U/L (5-34); Albumin 2.8 g/dL (3.4-4.8); Alkaline Phosphatase 136 U/L (40-110); Anion Gap 17 mmol/L (10-20); BUN (Urea Nitrogen) 13 mg/dL (8.4-25.7); Bilirubin, Total 0.2 mg/dL (0.2-1.2); Calc. Creatinine Clearance 0 mL/min (70-130); Calcium 8.6 mg/dL (7.8-10.44); Carbon Dioxide 19 mmol/L (23-31); Chloride 108 mmol/L (98-107); Estimated GFR 52; Globulin 2.9 g/dL (2.4-3.5); Glucose 91 mg/dL (83-110); Potassium 3.5 mmol/L (3.5-5.1); Protein, Total 5.7 g/dL (5.8-8.1); Sodium 140 mmol/L (136-145)
== END 2022-11-25 18:43 | disposition home or self-care (01) ==
LOC: ERS 15:53
DX: R06.00 Dyspnea, unspecified (principal); I10 Essential (primary) hypertension; J44.9 Chronic obstructive pulmonary disease, unspecified; I25.10 Atherosclerotic heart disease of native coronary artery without angina pectoris; F17.210 Nicotine dependence, cigarettes, uncomplicated
CPT/HCPCS: 36415; 71045; 80053; 84484; 85025; 93005

== ENCOUNTER 2023-04-30 19:12 | Emergency (ER) | payer OTHER ==
[2023-04-30 20:16] LABS: #Basophils 0.1 thou/uL (0.0-0.2); #Eosinphils 0.1 thou/uL (0.0-0.7); #Monocytes 0.8 thou/uL (0.11-0.59); #Neutrophils 3.3 thou/uL (1.40-6.50); %Basophils 0.8 % (0.0-1.0); %Eosinophils 1.3 % (0.0-10.0); %Lymphocytes 31.1 % (21.0-51.0); %Monocytes 13.2 % (0.0-10.0); %Neutrophils 52.9 % (42.0-75.0); Hematocrit 30.9 % (42.0-52.0); Hemoglobin 11.2 g/dL (14.0-18.0); Mean Corpuscular HGB CONC 36.2 g/dL (32.0-36.0); Mean Corpuscular Hemoglobin 32.3 pg (27.0-31.0); Platelet Count 231 10x3/uL (130-400); RBC Distribution Width 14.8 % (11.5-14.5); Red Blood Cell (RBC) Count 3.47 mill/uL (4.70-6.10); White Blood Cell (WBC) Count 6.1 10x3/uL (4.8-10.8)
[2023-04-30 20:42] LABS: ALT (SGPT) 26 U/L (8-55); AST (SGOT) 63 U/L (5-34); Albumin 3.4 g/dL (3.4-4.8); Alkaline Phosphatase 113 U/L (40-110); Anion Gap 20 mmol/L (10-20); BUN (Urea Nitrogen) 13 mg/dL (8.4-25.7); Bilirubin, Total 0.3 mg/dL (0.2-1.2); Calc. Creatinine Clearance 0 mL/min (70-130); Calcium 8.9 mg/dL (7.8-10.44); Carbon Dioxide 15 mmol/L (23-31); Chloride 107 mmol/L (98-107); Estimated GFR 50; Globulin 2.8 g/dL (2.4-3.5); Glucose 97 mg/dL (83-110); Magnesium 1.9 mg/dL (1.6-2.6); Potassium 3.7 mmol/L (3.5-5.1); Protein, Total 6.2 g/dL (5.8-8.1); Sodium 138 mmol/L (136-145)
[2023-04-30 20:46] LABS: Troponin I 0.019 ng/mL (< 0.028)
== END 2023-04-30 21:34 | disposition home or self-care (01) ==
LOC: ERS 19:12
DX: S09.90XA Unspecified injury of head, initial encounter (principal); I12.9 Hypertensive chronic kidney disease with stage 1 through stage 4 chronic kidney disease, or unspecified chronic kidney disease; N18.9 Chronic kidney disease, unspecified; R74.01 Elevation of levels of liver transaminase levels; E87.21 Acute metabolic acidosis; I45.81 Long QT syndrome; J44.9 Chronic obstructive pulmonary disease, unspecified; I25.10 Atherosclerotic heart disease of native coronary artery without angina pectoris; F17.210 Nicotine dependence, cigarettes, uncomplicated; W18.30XA Fall on same level, unspecified, initial encounter; Z79.82 Long term (current) use of aspirin
CPT/HCPCS: 70450; 70486; 71045; 72125; 72170; 80053; 83735; 84484; 85025; 93005; 94760

== ENCOUNTER 2023-05-08 21:57 | Emergency (ER) | payer OTHER ==
[2023-05-09] MEDS ORDERED: Lidocaine 1% w/Epinephrine 1:100K 20 ML VIAL ONE (00:24)
[2023-05-09] MEDS ORDERED: Bacitracin 1 PK ONE (01:57)
[2023-05-09] MEDS ORDERED: HYDROcodone/Acetaminophen 5/325 mg Tablet ONE (01:57)
[2023-05-09] MEDS ORDERED: Boostrix 0.5 ML (Tdap) VIAL (>/=7 yrs of age) ONE (01:58)
== END 2023-05-09 02:10 | disposition home or self-care (01) ==
LOC: ERS 21:57
DX: S01.81XA Laceration without foreign body of other part of head, initial encounter (principal); I10 Essential (primary) hypertension; J44.9 Chronic obstructive pulmonary disease, unspecified; I25.10 Atherosclerotic heart disease of native coronary artery without angina pectoris; F17.210 Nicotine dependence, cigarettes, uncomplicated; Z79.82 Long term (current) use of aspirin; W18.30XA Fall on same level, unspecified, initial encounter
CPT/HCPCS: 12052; 70450; 72125; 90471; 90715